=== PATIENT | female | born 1965 | race Caucasian/White ===

== ENCOUNTER → 2018-05-14 08:54 | Outpatient (CLI) | payer BC, SELFPAY ==
[2018-05-14 10:29] LABS: Hematocrit 41.3 % (37-47); Mean Corp Hgb Conc 33.9 g/gl (32-36); Mean Corpuscular Hgb 31.5 pg (27.0-32.0); Mean Corpuscular Volume 92.8 fL (81-99); Mean Platelet Vol. 10.2 fl (6.2-12.0); Platelet Count 371 K/mm3 (150-450); RBC Distribution Width CV 13.9 % (11.6-14.6); RBC Distribution Width SD 45.7 fl (35.1-43.9); Red Blood Count 4.45 M/mm3 (4.2-5.4); White Blood Count 8.2 K/mm3 (4.4-11.0)
[2018-05-14 10:30] LABS: Scan Indicated on CBC? Y/N NO
[2018-05-14 10:54] LABS: Anion Gap 9 (5-15); BUN 17 mg/dL (7-18); BUN/Creat Ratio 24.4 RATIO (10-20); Chloride 105 mmol/L (98-107); EST Glomerular Filtration Rate 93 mL/min (>60); Est Glom Filt Rate - Afr Amer 112 mL/min (>60); Glucose 92 mg/dL (74-106); Magnesium 1.9 mg/dL (1.6-2.6); Potassium 3.7 mmol/L (3.5-5.1); Sodium Level 142 mmol/L (136-145); Thyroid Stim Hormone (TSH) 0.88 uIU/mL (0.358-3.74); Vitamin D,25 Hydroxy 29.5 ng/mL (29.95-100.01)
== END ==
PROVIDERS: Family Provider Family Medicine; PCP Family Medicine; Visit Provider Family Medicine
DX: F41.1 Generalized anxiety disorder (principal)
CPT/HCPCS: 36415; 80048; 82306; 83735; 84443; 85027

== ENCOUNTER 2018-07-13 10:58 | Outpatient (RCR) | payer BC, SELFPAY ==
--- NOTE | 2018-07-16 08:18 | HP.OTEVAL_ITS ---
Patient's Visit Information SONDRA LINDSAY is a 53 year old F, referred to Occupational Therapy by VANI Huffman, with a diagnosis of Primary OA L hand, basal thumb jt.. 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 Pt. reported that the arthritis started up in October of 2016 and she recieved the cortisone shot, which was effective at the time and about 2 months ago pt. reported that the arthritis pain started coming back. - Pain L thumb 7 Pain Intensity Range: 0, 1, 2, 3, 4, 5, 6, 7 - ROM MP: 0/70 IP: 0/65 ROM Comments: slightly painful to move thumb during ROM measurements, pt. demo ability to oppose each digit and move thumb down the entire digit. 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 by completing strengthening exercises and stretches in order to complete BADL?s and IADL's. Patient will improve lateral and tripod grasps by 5 lbs. by completing strengthening and stretching exercises in order to complete BADL?s and IADL?s. Goal:: Patient will increase ROM in MP joint of L thumb by 10 degrees by completing strengthening and stretching exercises in order to complete BADL?s and IADL?s. Goal:: Patient will have decreased swelling and report overall decrease in pain of <4 in order to complete BADL?s and IADL?s. Goal:: Patient will demo understanding of joint protection and ECM recommendations for increase I with BADL?s and IADL?s. Goal:: patient will report wearing the CMC splint during functional tasks for i ncreased I with BADL's and IADL's. - Rehabilitation General Assessment: Patient presents today with OA of the L hand, specifically in the CMC area. Pt. presents with decreased strength, ROM, increased pain and decreased ability to complete BADL's and IADL's. Patient recently had a cortisone shot, which will likely help to reduce pain in hand. Patient would be nefit from OT services prn to further educate pt. on joint protection and ECM. Today, OT fabricated a CMC brace for pt. and educated pt. on joint protection and ECM. Rehabilitation Potential: Good - Anticipated Interventions Anticipated Interventions: A/AAROM/PROM, Strengthening, Triggerpoint Release, Modalities, Joint Protection/Energy Conservation, Ergonomic Education, ADL Training, Home Program - Visit Plan Frequency: prn Duration: prn TEXT: Thank you for the opportunity to evaluate your patient. For Medicare and Medicare HMO plans, please review the plan of care and approve it. It will need to be FAXED BACK to us at [phone] for Medicare purposes. Please let me know if there are questions or concerns regarding this plan of care. Physician Signature: Date:
--- NOTE | 2018-12-17 14:40 | HP.OTDCSUM ---
HP - OT D/C Summary It has been my pleasure to treat SONDRA LINDSAY under orders from VANI Huffman, for the diagnosis of Primary OA L hand, basal thumb jt. for a total of 1 visit(s). Please see the following information for a summary of their discharge status. 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 by completing strengthening exercises and stretches in order to complete BADL?s and IADL's. Patient will improve lateral and tripod grasps by 5 lbs. by completing strengthening and stretching exercises in order to complete BADL?s and IADL?s. Goal:: Patient will increase ROM in MP joint of L thumb by 10 degrees by completing strengthening and stretching exercises in order to complete BADL?s and IADL?s. Goal:: Patient will have decreased swelling and report overall decrease in pain of <4 in order to complete BADL?s and IADL?s. Goal:: Patient will demo understanding of joint protection and ECM recommendations for increase I with BADL?s and IADL?s. Goal:: patient will report wearing the CMC splint during functional tasks for increased I with BADL's and IADL's. - D/C Information If there are questions or concerns regarding this patient's occupational therapy, please fell free to call me at [phone]. Thank you for the referral of this patient. Sincerely, Duyen Kline, OTR/L, CHT
--- NOTE | 2018-12-17 14:42 | HP.OT.NRP ---
HP - Discharge Summary - Patient Information SONDRA LINDSAY was seen in my office for initial evaluation on 07/13/18. The following Plan of Care was established for this patient: Initial Frequency: prn Initial Duration: prn - Anticipated Interventions Anticipated Interventions: A/AAROM/PROM, Strengthening, Triggerpoint Release, Modalities, Joint Protection/Energy Conservation, Ergonomic Education, ADL Training, Home Program This patient was last seen in our office 07/13/18. Pertinent comments regarding their Occupational therapy will appear below: pt was seen for initial OT eval only. Due to time-lapse in services pt d/c at this time. At this point I will be discontinuing this patient from occupational therapy. I would be happy to see this patient again in the future if found appropriate by the physician. Thank you! Duyen Kline, OTR/L, CHT
--- NOTE | 2018-12-17 14:47 | HP.OTDCNRP_ITS ---
HP - Discharge Summary - Patient Information SONDRA LINSDAY was seen in my office for initial evaluation on 07/13/18. The following Plan of Care was established for this patient: Initial Frequency: prn Initial Duration: prn - Anticipated Interventions Anticipated Interventions: A/AAROM/PROM, Strengthening, Triggerpoint Release, Modalities, Joint Protection/Energy Conservation, Ergonomic Education, ADL Training, Home Program This patient was last seen in our office 07/13/18. Pertinent comments regarding their Occupational therapy will appear below: pt was seen for initial OT eval only. Due to time-lapse in services pt d/c at this time. At this point I will be discontinuing this patient from occupational therapy. I would be happy to see this patient again in the future if found appropriate by the physician. Thank you! Duyen Kline, OTR/L, CHT
--- NOTE | 2018-12-17 14:47 | HP.OTDCSUM_ITS ---
HP - OT D/C Summary It has been my pleasure to treat SONDRA LINDSAY under orders from VANI Huffman, for the diagnosis of Primary OA L hand, basal thumb jt. for a total of 1 visit(s). Please see the following information for a summary of their discharge status. 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 by completing strengthening exercises and stretches in order to complete BADL?s and IADL's. Patient will improve lateral and tripod grasps by 5 lbs. by completing str engthening and stretching exercises in order to complete BADL?s and IADL?s. Goal:: Patient will increase ROM in MP joint of L thumb by 10 degrees by completing strengthening and stretching exercises in order to complete BADL?s and IADL?s. Goal:: Patient will have decreased swelling and report overall decrease in pain of <4 in order to complete BADL?s and IADL?s. Goal:: Patient will demo understanding of joint protection and ECM recommendations for increase I with BADL?s and IADL?s. Goal:: patient will report wearing the CMC splint during functional tasks for increased I with BADL's and IADL's. - D/C Information If there are questions or concerns regarding this patient's occupational therapy, please fell free to call me at [phone]. Thank you for the referral of this patient. Sincerely, Duyen Kline, OTR/L, CHT
== END 2018-07-13 19:00 | disposition home or self-care (01) ==
LOC: OT 10:58
PROVIDERS: Family Provider Family Medicine; PCP Family Medicine; Referring Provider Physician Assistant Surgical; Visit Provider Physician Assistant Surgical
DX: M19.042 Primary osteoarthritis, left hand (principal)
CPT/HCPCS: 97166

== ENCOUNTER → 2018-08-22 14:12 | Outpatient (CLI) | payer BC, SELFPAY ==
[2018-08-25 19:49] LABS: HPV Reflexed? NOT INDICATED
== END ==
PROVIDERS: Visit Provider Obstetrics & Gynecology
DX: Z12.4 Encounter for screening for malignant neoplasm of cervix (principal)
CPT/HCPCS: 88175; G0145

== ENCOUNTER → 2019-04-10 16:36 | Outpatient (CLI) | payer BC, SELFPAY ==
[2019-04-10 17:39] LABS: Erythrocyte Sedimentation Rate 13 mm/hr (0-30)
[2019-04-10 17:43] LABS: Absolute Lymphocyte Count 3.22 X10^3/uL (0.83-4.51); Basophil# 0.04 X10^3/uL; Basophil% 0.5 % (0-1); Eosinophil# 0.34 X10^3/uL; Eosinophils% 4.1 % (0-5); Hematocrit 41.7 % (37-47); Hemoglobin 13.6 g/dL (12.0-15.0); Lymphocyte # 3.22 X10^3/ul (4.0); Lymphocyte % 38.9 % (19-41); Mean Corp Hgb Conc 32.6 g/dL (32-36); Mean Corpuscular Hgb 30.4 pg (27.0-32.0); Mean Corpuscular Volume 93.1 fL (81-99); Mean Platelet Vol. 9.9 fl (6.2-12.0); Monocyte# 0.65 X10^3/uL; Monocyte% 7.9 % (0-10); NRBC Flagged by Analyzer 0 % (0-5); Neutrophil % 48.4 % (47-70); Platelet Count 346 K/mm3 (150-450); RBC Distribution Width CV 13.5 % (11.6-14.6); RBC Distribution Width SD 46.3 fl (35.1-43.9); Red Blood Count 4.48 M/mm3 (4.2-5.4); White Blood Count 8.3 K/mm3 (4.4-11.0)
[2019-04-10 17:51] LABS: ALB/GLOB Ratio 0.9 RATIO (0.9-2.4); AST(SGOT) 17 U/L (15-37); Alanine Aminotransfer ALT/SGPT 21 U/L (13-56); Albumin, Serum 3.7 g/dL (3.2-5.0); Alkaline Phosphatase 97 U/L (45-117); Anion Gap 5 (5-15); BUN 12 mg/dL (7-18); BUN/Creat Ratio 17.3 RATIO (10-20); Calcium,Total 8.9 mg/dL (8.5-10.1); Chloride 107 mmol/L (98-107); Creatinine, Serum 0.69 mg/dL (0.55-1.02); EST Glomerular Filtration Rate 93 mL/min (>60); Est Glom Filt Rate - Afr Amer 112 mL/min (>60); Ferritin 50 ng/mL (8-252); Free T3 2.9 pg/mL (2.18-3.98); Glucose 94 mg/dL (74-106); Iron 45 ug/dL (50-170); Potassium 4.1 mmol/L (3.5-5.1); Protein, Total 7.7 g/dL (6.4-8.2); Sodium Level 139 mmol/L (136-145); T4 Free Direct 0.81 ng/dL (0.76-1.46); Thyroid Stim Hormone (TSH) 0.93 uIU/mL (0.358-3.74)
[2019-04-10 18:10] LABS: Vitamin B12 1969 pg/mL (211-911)
== END ==
PROVIDERS: Family Provider Family Medicine; PCP Family Medicine; Referring Provider Family Medicine; Visit Provider Family Medicine
DX: R53.83 Other fatigue (principal)
CPT/HCPCS: 36415; 80053; 82306; 82533; 82607; 82728; 83540; 84439; 84443; 84481; 85025; 85652

== ENCOUNTER → 2019-06-27 15:45 | Outpatient (CLI) | payer BC, SELFPAY ==
--- NOTE | 2019-06-27 15:57 | BD_ITS ---
STUDY: DUAL ENERGY X-RAY ABSORPTIOMETRY / DXA REASON FOR EXAM: Female, 54 years old. Early menopause. Loss of height. TECHNIQUE: Bone Mineral Density (BMD) measurements of lumbar spine and bilateral hips were obtained. COMPARISON: None. FINDINGS: Lumbar Spine (L1-L4): g/cm2 (1.020) / T-score (-1.3) / Z-score (-0.4) Findings are suggestive of with a low fracture risk. Left Femur Total: g/cm2 (0.766) / T-score (-1.9) / Z-score (-1.2) Left Femoral Neck: g/cm2 (0.828) / T-score (-1.5) / Z-score (-0.4) Right Femur Total: g/cm2 (0.768) / T-score (-1.9) / Z-score (-1.2) Right Femoral Neck: g/cm2 (0.770) / T-score (-1.9) / Z-score (-0.9) BD/Dexa Bone Density Study IMPRESSION: The patient is considered osteopenic as outlined below according to World [place] Organization (WHO) criteria with a moderate fracture risk. Reference Information: The T-score is the number of standard deviations above or below the standard which is normal for young adults at their peak bone mineral density. The World Health Organization (WHO) interprets the T-scores as follows: Above -1 Normal bone density Between -1 and -2.5 Osteopenia Equal to / or below -2.5 Osteoporosis As a practical clinical guideline, osteopenia may be graded as follows: Mild -1 through -1.5 Moderate -1.6 through -2.0 Severe -2.1 through -2.4 The Z-score is the number of standard deviations above or below age-matched controls. A Z-score of less than -1.5 would be considered abnormal. References: 1. NIH Osteoporosis and Related Bone Diseases http://www.osteo.org 2. International Society for Clinical Densitometry http://www.iscd.org 3. National Osteoporosis Foundation http://www.nof.org Electronically Signed: Cornelio Jean, at 13:31 EST , Service support ,
--- NOTE | 2019-06-27 16:08 | BI_ITS ---
MAMMOGRAPHY - BILATERAL SCREENING REASON FOR EXAM: Female, 54 years old. Routine annual screening examination. PERTINENT HISTORY: Grandmother with breast cancer. Remote right excisional breast biopsy. TECHNIQUE: Digital bilateral breast jina (3D mammographic acquisition) in the CC and MLO projections. 2-D mediolateral oblique (MLO) and craniocaudad (CC) views of both breasts were obtained. CAD: Full Field Digital Mammography with Computer Added Detection was performed. COMPARISON: Comparison is made with prior study dated August 10, 2017 and August 13, 2015. FINDINGS: Breast Composition: The breasts are extremely dense, which lowers the sensitivity of mammography. There are no dominant masses or suspicious calcifications. No other significant abnormalities are identified. There has been no significant change since the prior study. BI/SCREEN MAMM (CAD) W/JINA BILAT IMPRESSION: Stable bilateral screening mammogram. Yearly follow-up mammogram recommended. (A) ASSESSMENT CATEGORY: BIRADS Category 1: Negative. A letter regarding these results will be sent to the patient by the facility within 30 days. Approximately 10% of breast cancers are not detected by mammography. A normal mammogram should not delay biopsy of a clinically suspicious abnormality. [id number] Electronically Signed: Cornelio Jean, at 8:54 EST , Service support ,
== END ==
PROVIDERS: Family Provider Family Medicine; PCP Family Medicine; Referring Provider Family Medicine; Visit Provider Family Medicine
DX: Z12.31 Encounter for screening mammogram for malignant neoplasm of breast (principal); Z80.3 Family history of malignant neoplasm of breast
CPT/HCPCS: 77063; 77067; 77080

== ENCOUNTER → 2020-05-08 14:41 | Outpatient (CLI) | payer BC, SELFPAY ==
[2020-05-08 18:14] LABS: Hematocrit 40.1 % (37-47); Hemoglobin 13.4 g/dL (12.0-15.0); Mean Corp Hgb Conc 33.4 g/dL (32-36); Mean Corpuscular Hgb 30.8 pg (27.0-32.0); Mean Corpuscular Volume 92.2 fL (81-99); Mean Platelet Vol. 10.3 fl (6.2-12.0); Platelet Count 389 K/mm3 (150-450); RBC Distribution Width CV 13.1 % (11.6-14.6); RBC Distribution Width SD 44.7 fl (35.1-43.9); Red Blood Count 4.35 M/mm3 (4.2-5.4); White Blood Count 9.8 K/mm3 (4.4-11.0)
[2020-05-08 18:30] LABS: Vitamin B12 443 pg/mL (211-911); Vitamin D,25 Hydroxy 55.8 ng/mL
[2020-05-08 18:36] LABS: ALB/GLOB Ratio 1.1 RATIO (0.9-2.4); AST(SGOT) 18 U/L (15-37); Alanine Aminotransfer ALT/SGPT 21 U/L (13-56); Alkaline Phosphatase 87 U/L (45-117); Anion Gap 6 (5-15); BUN 13 mg/dL (7-18); BUN/Creat Ratio 18.7 RATIO (10-20); Calcium,Total 8.9 mg/dL (8.5-10.1); Chloride 109 mmol/L (98-107); Creatinine, Serum 0.69 mg/dL (0.55-1.02); EST Glomerular Filtration Rate 93 mL/min (>60); Est Glom Filt Rate - Afr Amer 112 mL/min (>60); Globulin 3.6 g/dL (2.2-4.2); Glucose 92 mg/dL (74-106); Iron 57 ug/dL (50-170); Potassium 3.5 mmol/L (3.5-5.1); Protein, Total 7.6 g/dL (6.4-8.2); Sodium Level 140 mmol/L (136-145); Thyroid Stim Hormone (TSH) 0.41 uIU/mL (0.358-3.74)
== END ==
PROVIDERS: PCP Family Medicine; Referring Provider Family Medicine; Visit Provider Family Medicine
DX: R53.83 Other fatigue (principal)
CPT/HCPCS: 36415; 80053; 82306; 82607; 83540; 84443; 85027

== ENCOUNTER → 2020-05-18 18:07 | Outpatient (CLI) | payer BC, SELFPAY | PROVIDERS: PCP Family Medicine; Referring Provider Family Medicine; Visit Provider Family Medicine | DX: R30.0 Dysuria (principal) | CPT/HCPCS: 87086; 87088 ==

== ENCOUNTER → 2020-05-20 | Outpatient (CLI) | payer BC, SELFPAY | END | disposition home or self-care (01) | LOC: LABSPEC 16:28 | PROVIDERS: PCP Family Medicine; Referring Provider Family Medicine; Visit Provider Family Medicine | DX: R30.0 Dysuria (principal) | CPT/HCPCS: 87086; 87088 ==

== ENCOUNTER → 2020-08-12 09:58 | Outpatient (CLI) | payer BC, SELFPAY ==
--- NOTE | 2020-08-12 10:01 | BI_ITS ---
MAMMOGRAPHY - BILATERAL SCREENING REASON FOR EXAM: Female, 55 years old. Routine annual screening examination. PERTINENT HISTORY: Grandmother with breast cancer. Right excisional breast biopsy. TECHNIQUE: Digital bilateral breast jina (3D mammographic acquisition) in the CC and MLO projections. 2-D mediolateral oblique (MLO) and craniocaudad (CC) views of both breasts were obtained. CAD: Full Field Digital Mammography with Computer Added Detection was performed. COMPARISON: Comparison is made with prior study dated 06/27/2019 and 08/10/2017. FINDINGS: Breast Composition: The breasts are extremely dense, which lowers the sensitivity of mammography. There are no dominant masses or suspicious calcifications. No other significant abnormalities are identified. There has been no significant change since the prior study. BI/SCREEN MAMM (CAD) W/JINA BILAT IMPRESSION: Stable bilateral screening mammogram. Yearly follow-up mammogram recommended. (A) ASSESSMENT CATEGORY: BIRADS Category 1: Negative. A letter regarding these results will be sent to the patient by the facility within 30 days. Approximately 10% of breast cancers are not detected by mammography. A normal mammogram should not delay biopsy of a clinically suspicious abnormality. [id number] Electronically Signed: Cornelio Jean, at 9:55 EST , Service support ,
== END ==
PROVIDERS: PCP Family Medicine; Referring Provider Family Medicine; Visit Provider Family Medicine
DX: Z12.31 Encounter for screening mammogram for malignant neoplasm of breast (principal)
CPT/HCPCS: 77063; 77067

== ENCOUNTER → 2020-11-16 | Outpatient (CLI) | payer OTHER, SELFPAY | END | disposition home or self-care (01) | PROVIDERS: PCP Family Medicine; Visit Provider Family Medicine | DX: R30.0 Dysuria (principal) | CPT/HCPCS: 87086 ==

== ENCOUNTER → 2021-06-08 | Outpatient (CLI) | payer OTHER, SELFPAY ==
[2021-06-08 15:37] LABS: Mucous, Urine 0 SEEN /hpf (<or=2+); Red Blood Cells-Urine 0 SEEN /hpf (0-5)
[2021-06-08 16:01] LABS: Color, Urine Amber (Yellow); Glucose, Dipstick Normal (Normal); Ketone-Dipstick Negative (Negative); Leukocyte Esterase-Dipstick 500 /ul (Negative); Nitrite-Dipstick Positive (Negative); Occult Blood-Urine 150 /ul (Negative); Protein-Dipstick 15 mg/dl (Negative); Urine Clarity Sl. Cloudy (Clear); Urine Urobilinogen 8 mg/dl (Normal)
[2021-06-08 16:08] LABS: Urine Bilirubin Dipstick 3 mg/dL (Negative)
[2021-06-08 16:19] LABS: Bacteria RARE /hpf (None Seen); Squamous Epithelial Cells - UA 0-5 SEEN /hpf (5-10); White Blood Cells >100 SEEN /hpf (0-5)
== END | disposition home or self-care (01) ==
LOC: LABSPEC 15:18
PROVIDERS: PCP Family Medicine; Referring Provider Physician Assistant Surgical; Visit Provider Physician Assistant Surgical
DX: N39.0 Urinary tract infection, site not specified (principal)
CPT/HCPCS: 81001; 87077; 87086; 87088; 87186

== ENCOUNTER → 2021-08-12 08:26 | Outpatient (CLI) | payer OTHER, SELFPAY ==
[2021-08-12 10:45] LABS: Vitamin D,25 Hydroxy 50.3 ng/mL
[2021-08-12 11:07] LABS: Anion Gap 6 (5-15); BUN 17 mg/dL (7-18); BUN/Creat Ratio 24.4 RATIO (10-20); Calcium,Total 9.5 mg/dL (8.5-10.1); Chloride 108 mmol/L (98-107); Cholesterol 203 mg/dL (200); EST Glomerular Filtration Rate 92 mL/min (>60); Est Glom Filt Rate - Afr Amer 111 mL/min (>60); Glucose 92 mg/dL (74-106); High Density Lipoprotein 50 mg/dL; Sodium Level 139 mmol/L (136-145); Thyroid Stim Hormone (TSH) 0.71 uIU/mL (0.358-3.74); Triglycerides 78 mg/dL; Very Low Density Lipoprotein 16 mg/dL (5-40)
== END ==
PROVIDERS: PCP Family Medicine; Visit Provider Family Medicine
DX: R53.83 Other fatigue (principal); Z13.220 Encounter for screening for lipoid disorders; Z13.29 Encounter for screening for other suspected endocrine disorder
CPT/HCPCS: 36415; 80048; 80061; 82306; 84443

== ENCOUNTER 2021-09-03 16:07 | Outpatient (CLI) | payer BC, SELFPAY ==
[2021-09-03 17:27] LABS: Absolute Lymphocyte Count 3.52 X10^3/uL (0.83-4.51); Absolute Neutrophil Count 10.2 X10^3/uL (2.0-7.7); Basophil# 0.06 X10^3/uL; Basophil% 0.4 % (0-1); Eosinophil# 0.18 X10^3/uL; Eosinophils% 1.2 % (0-5); Hematocrit 38.2 % (37-47); Hemoglobin 12.9 g/dL (12.0-15.0); Lymphocyte # 3.52 X10^3/ul (0.83-4.51); Lymphocyte % 23.2 % (19-41); Mean Corp Hgb Conc 33.8 g/dL (32-36); Mean Corpuscular Hgb 30.5 pg (27.0-32.0); Mean Corpuscular Volume 90.3 fL (81-99); Monocyte% 7.3 % (0-10); NRBC Flagged by Analyzer 0 % (0-5); Neutrophil # 10.23 X10^3/uL (2.7-7.7); Neutrophil % 67.5 % (47-70); Platelet Count 371 K/mm3 (150-450); RBC Distribution Width CV 13.2 % (11.6-14.6); RBC Distribution Width SD 43.6 fl (35.1-43.9); Red Blood Count 4.23 M/mm3 (4.2-5.4); White Blood Count 15.2 K/mm3 (4.4-11.0)
[2021-09-03 17:48] LABS: ALB/GLOB Ratio 1.2 RATIO (0.9-2.4); AST(SGOT) 16 U/L (15-37); Alanine Aminotransfer ALT/SGPT 22 U/L (13-56); Albumin, Serum 3.8 g/dL (3.2-5.0); Alkaline Phosphatase 96 U/L (45-117); Anion Gap 7 (5-15); BUN 15 mg/dL (7-18); BUN/Creat Ratio 24.8 RATIO (10-20); Calcium,Total 9.2 mg/dL (8.5-10.1); Chloride 107 mmol/L (98-107); EST Glomerular Filtration Rate 108 mL/min (>60); Est Glom Filt Rate - Afr Amer 131 mL/min (>60); Globulin 3.2 g/dL (2.2-4.2); Glucose 93 mg/dL (74-106); Sodium Level 138 mmol/L (136-145)
== END 2021-09-03 23:59 | disposition short-term general hospital (02) ==
LOC: MFPLAB 16:15
PROVIDERS: PCP Family Medicine; Referring Provider Family Medicine; Visit Provider Family Medicine
DX: K57.92 Diverticulitis of intestine, part unspecified, without perforation or abscess without bleeding (principal)
CPT/HCPCS: 36415; 80053; 85025

== ENCOUNTER 2021-09-03 16:42 | Outpatient (CLI) | payer BC, SELFPAY ==
--- NOTE | 2021-09-03 16:46 | CT_ITS ---
STUDY: CT Abdomen And Pelvis W/ Contrast Injection 09/03/2021 7:00 PM REASON FOR EXAM: Female, 56 years old. Technologist Notes Other, LLQ PAIN X 2 DAYS, PT HAD TUBAL LIGATION PAIN DIVERTICULITIS TECHNIQUE: Transaxial images were obtained with oral contrast, and with Oral and amp; IV Gastrografin and amp; 100mL Isovue-300 intravenous contrast. Individualized dose optimization techniques were used for this CT. COMPARISON: None. FINDINGS: The visualized lung bases are unremarkable. The visualized portions of the heart are within normal limits. Scattered subcentimeter hypodensities in the liver. Normal gallbladder and extrahepatic biliary system. Normal spleen. Normal pancreas. Normal bilateral adrenal glands. 3.6 mm nonobstructive right renal stone. 2 mm nonobstructive superior left renal stone. Normal visualized stomach. Normal small intestine. There is diverticulosis, with thickening of the colon wall, and pericolonic inflammation changes consistent with acute diverticulitis. There is distal descending colon mural wall edema. There is non-visualization of the appendix. There are calcifications of the abdominal aorta. This is consistent for atherosclerotic disease. There is no abdominal aortic aneurysm. Normal inferior vena cava. Subcentimeter mesenteric lymph nodes. Normal urinary bladder. There is atrophy of the uterus. There is an umbilical hernia containing fat. There are diffuse degenerative changes of the visualized lumbar spine. IMPRESSION: (NOT LISTED IN ORDER OF SIGNIFICANCE) Acute diverticulitis of the distal descending colon. Scattered subcentimeter hypodensities in the liver. ACR White Paper guidelines (To, et al. JACR 2017; 14(11):7840-3233.) suggest the following. For patients with low risk of malignancy, no further follow-up is necessary. For patients with high risk of malignancy (known malignancy with a propensity to metastasize to the liver, cirrhosis, and/or other hepatic risk factors), recommend follow-up abdominal CT or MR in 6 months. There are bilateral renal calculi. There is no evidence for an obstruction. There is no hydronephrosis. Other findings as above. Electronically Signed: Nate Cummings MD at 19:32 EST , Service support , CT/Abdomen/Pelvis WITH Contrast
== END 2021-09-03 23:59 | disposition short-term general hospital (02) ==
LOC: CT 16:44
PROVIDERS: PCP Family Medicine; Referring Provider Family Medicine; Visit Provider Family Medicine
DX: K57.32 Diverticulitis of large intestine without perforation or abscess without bleeding (principal); N20.0 Calculus of kidney
CPT/HCPCS: 74177; Q9967

== ENCOUNTER → 2022-01-28 | Outpatient (CLI) | payer BC, SELFPAY | END | disposition home or self-care (01) | LOC: LABSPEC 15:37 | PROVIDERS: PCP Family Medicine; Referring Provider Family Medicine; Visit Provider Family Medicine | DX: N39.0 Urinary tract infection, site not specified (principal) | CPT/HCPCS: 87077; 87086; 87088; 87186 ==

== ENCOUNTER → 2022-03-16 | Outpatient (CLI) | payer BC, SELFPAY ==
[2022-03-16 18:07] LABS: Absolute Lymphocyte Count 3.65 X10^3/uL (0.83-4.51); Absolute Neutrophil Count 6.5 X10^3/uL (2.0-7.7); Basophil# 0.06 X10^3/uL; Basophil% 0.5 % (0-1); Eosinophil# 0.29 X10^3/uL; Eosinophils% 2.6 % (0-5); Hematocrit 42.6 % (37-47); Lymphocyte # 3.65 X10^3/ul (0.83-4.51); Lymphocyte % 32.1 % (19-41); Mean Corp Hgb Conc 32.9 g/dL (32-36); Mean Corpuscular Hgb 30.8 pg (27.0-32.0); Mean Corpuscular Volume 93.8 fL (81-99); Mean Platelet Vol. 9.8 fl (6.2-12.0); Monocyte# 0.84 X10^3/uL; Monocyte% 7.4 % (0-10); NRBC Flagged by Analyzer 0 % (0-5); Neutrophil # 6.49 X10^3/uL (2.7-7.7); Neutrophil % 57.1 % (47-70); Platelet Count 417 K/mm3 (150-450); RBC Distribution Width CV 13.6 % (11.6-14.6); RBC Distribution Width SD 46.9 fl (35.1-43.9); Red Blood Count 4.54 M/mm3 (4.2-5.4); White Blood Count 11.4 K/mm3 (4.4-11.0)
[2022-03-16 18:24] LABS: Erythrocyte Sedimentation Rate 18 mm/hr (0-30)
[2022-03-16 18:45] LABS: AST(SGOT) 26 U/L (15-37); Alanine Aminotransfer ALT/SGPT 31 U/L (13-56); Albumin, Serum 3.8 g/dL (3.2-5.0); Alkaline Phosphatase 102 U/L (45-117); Anion Gap 5 (5-15); BUN 13 mg/dL (7-18); BUN/Creat Ratio 17.6 RATIO (10-20); Calcium,Total 9.4 mg/dL (8.5-10.1); Chloride 108 mmol/L (98-107); Creatinine, Serum 0.74 mg/dL (0.55-1.02); EST Glomerular Filtration Rate 86 mL/min (>60); Est Glom Filt Rate - Afr Amer 104 mL/min (>60); Ferritin 61 ng/mL (8-252); Globulin 3.8 g/dL (2.2-4.2); Glucose 107 mg/dL (74-106); Iron 75 ug/dL (50-170); Potassium 3.8 mmol/L (3.5-5.1); Protein, Total 7.6 g/dL (6.4-8.2); Sodium Level 138 mmol/L (136-145); Thyroid Stim Hormone (TSH) 0.62 uIU/mL (0.358-3.74)
[2022-03-16 19:23] LABS: Vitamin B12 346 pg/mL (211-911); Vitamin D,25 Hydroxy 48.3 ng/mL
== END | disposition home or self-care (01) ==
LOC: MFPLAB 16:30
PROVIDERS: PCP Family Medicine; Referring Provider Family Medicine; Visit Provider Family Medicine
DX: R53.83 Other fatigue (principal)
CPT/HCPCS: 36415; 80053; 82306; 82533; 82607; 82728; 83540; 84443; 85025; 85652

== ENCOUNTER → 2022-05-03 | Outpatient (CLI) | payer BC, SELFPAY ==
--- NOTE | 2022-05-03 15:37 | CT_ITS ---
STUDY: CT ABDOMEN AND PELVIS WITH CONTRAST ENHANCEMENT OF 1747 HOURS ON 05/03/2022 REASON FOR EXAM: 57-year-old female with clinical diverticulitis. RADIATION DOSAGE (If Supplied By Facility): CTDIvol = ( 12.38 ) mGy, DLP = ( 593.39 ) mGycm. TECHNIQUE: Transaxial images were obtained from the dome of the diaphragm to the symphysis pubis without oral contrast. 100 mL of Isovue 370 was administered intravenously for this study.. Sagittal and coronal images were reconstructed. Individualized dose optimization techniques were used for this CT. COMPARISON: 09/03/2021, at which time the patient had an acute diverticulitis of the distal descending colon. FINDINGS: Mild pectus excavatum. The visualized lung bases are unremarkable. The visualized portions of the heart are within normal limits. Presence of a 3 mm simple cyst in the dome of the right hepatic lobe and a 2 mm simple cyst in the medial aspect of the inferior right hepatic lobe. No other hepatic abnormalities. Normal size liver.. No other hepatic Normal gallbladder and extrahepatic biliary system. No cholelithiasis or cholecystitis. Normal spleen. Normal pancreas. No pancreatitis or pancreatic mass lesions. Normal bilateral adrenal glands. Normal kidneys without obstructive uropathy or pyelonephritis. Normal visualized stomach. Normal small intestine. Mild to moderate amount of fecal material in the cecum. Very minimal sigmoid colonic diverticulitis. No other sites of diverticulitis, colitis, or intestinal obstruction. The appendix is visualized and appears normal. Normal abdominal aorta. Normal inferior vena cava. Normal retroperitoneum. No free abdominal fluid or air. No abscesses. Normal empty bladder. Normal anteverted uterus. No ovarian cystic or solid mass lesions. Normal abdominal wall. Normal osseous structures. CT/Abdomen/Pelvis WITH Contrast IMPRESSION: 1. Very minimal sigmoid colonic diverticulitis. 2. Mild to moderate amount of fecal material in the cecum. 3. No other sites of diverticulitis, colitis, appendicitis or intestinal obstruction. 4. Normal kidneys without obstructive uropathy. Pyelonephritis. 5. No cholecystitis or pancreatitis. 6. Small cysts in the right hepatic lobe. No other hepatic abnormalities. 7. No evidence of uterine or ovarian abnormalities. Electronically Signed: Irvin Guy MD at 18:24 EDT ,
[2022-05-03 17:46] LABS: Absolute Lymphocyte Count 3.19 X10^3/uL (0.83-4.51); Absolute Neutrophil Count 6.5 X10^3/uL (2.0-7.7); Basophil# 0.05 X10^3/uL; Basophil% 0.5 % (0-1); Eosinophils% 2.8 % (0-5); Hematocrit 42.7 % (37-47); Hemoglobin 14.1 g/dL (12.0-15.0); Lymphocyte # 3.19 X10^3/ul (0.83-4.51); Lymphocyte % 29.5 % (19-41); Mean Corpuscular Hgb 31.3 pg (27.0-32.0); Mean Corpuscular Volume 94.7 fL (81-99); Monocyte# 0.76 X10^3/uL; NRBC Flagged by Analyzer 0 % (0-5); Neutrophil # 6.48 X10^3/uL (2.7-7.7); Neutrophil % 59.9 % (47-70); Platelet Count 409 K/mm3 (150-450); RBC Distribution Width CV 13.2 % (11.6-14.6); RBC Distribution Width SD 46.3 fl (35.1-43.9); Red Blood Count 4.51 M/mm3 (4.2-5.4); White Blood Count 10.8 K/mm3 (4.4-11.0)
[2022-05-03 18:27] LABS: ALB/GLOB Ratio 0.9 RATIO (0.9-2.4); AST(SGOT) 24 U/L (15-37); Alanine Aminotransfer ALT/SGPT 28 U/L (13-56); Albumin, Serum 3.5 g/dL (3.2-5.0); Alkaline Phosphatase 94 U/L (45-117); Anion Gap 11 (5-15); BUN 16 mg/dL (7-18); Chloride 107 mmol/L (98-107); Creatinine, Serum 0.84 mg/dL (0.55-1.02); EST Glomerular Filtration Rate 74 mL/min (>60); Est Glom Filt Rate - Afr Amer 89 mL/min (>60); Globulin 4.1 g/dL (2.2-4.2); Glucose 119 mg/dL (74-106); Potassium 3.5 mmol/L (3.5-5.1); Protein, Total 7.6 g/dL (6.4-8.2); Sodium Level 140 mmol/L (136-145)
== END | disposition home or self-care (01) ==
PROVIDERS: PCP Family Medicine; Referring Provider Family Medicine; Visit Provider Family Medicine
DX: K57.92 Diverticulitis of intestine, part unspecified, without perforation or abscess without bleeding (principal); K76.89 Other specified diseases of liver; N12 Tubulo-interstitial nephritis, not specified as acute or chronic
CPT/HCPCS: 36415; 74177; 80053; 85025; Q9967

== ENCOUNTER 2022-07-12 09:07 | Day surgery (SDC) | payer BC, SELFPAY ==
[2022-07-12] VITALS (8 sets, daily range): BP systolic 82–125; BP diastolic 43–72; PULSE 73–78; RESP 16–18; TEMP 36.2–37.2; O2SAT 93–98; BMI 22.1
[2022-07-12] MEDS: Lactated Ringers 1,000 ML 15 ML IV (09:15)
--- NOTE | 2022-07-12 09:47 | HP.PCM_ITS ---
History and Physical Date of Admission: 07/12/[address] Rafael Rogers MD on 07/01/22 at 1243 Intake Chief Complaint: f/u diverticulitis Allergies No Known Allergies Allergy (Verified 06/08/21 11:56) Medications cholecalciferol (vitamin D3) 25 mcg (1,000 unit) capsule 25 mcg PO DAILY 03/13/21 [History Confirmed 06/21/22] escitalopram oxalate 5 mg tablet 5 mg PO DAILY 03/13/21 [History Confirmed 06/21/22] calcium carbonate 600 mg calcium (1,500 mg) tablet 600 mg PO DAILY 06/21/22 [History Confirmed 06/21/22] multivitamin 1 tab PO DAILY 06/21/22 [History Confirmed 06/21/22] Assessment and Plan Assessment and Plan (1) Diverticulitis: ?Status:?Acute ?Plan: July 01, 2022 I have been alerted the patient is desiring to proceed on with colonoscopy.? There is additional comment that she had a previous hemorrhoidectomy per Dr. Florencio Gomez.? She states that she is having recurrent problems would like to have this area inspected as well. Rafael Rogers M.D., F.A.C.S. 07/01/22 1243 <Electronically signed by Rafael Rogers MD> Date Rafael Rogers MD cc:? Dr. Iker Arroyo MD ~* Signed ADDENDUM by Dr. Rafael Rogers MD on 06/30/22 at 1011 Intake Chief Complaint: f/u diverticulitis Allergies No Known Allergies Allergy (Verified 06/08/21 11:56) Medications cholecalciferol (vitamin D3) 25 mcg (1,000 unit) capsule 25 mcg PO DAILY 03/13/21 [History Confirmed 06/21/22] escitalopram oxalate 5 mg tablet 5 mg PO DAILY 03/13/21 [History Confirmed 06/21/22] calcium carbonate 600 mg calcium (1,500 mg) tablet 600 mg PO DAILY 06/21/22 [History Confirmed 06/21/22] multivitamin 1 tab PO DAILY 06/21/22 [History Confirmed 06/21/22] Assessment and Plan Assessment and Plan (1) Diverticulitis: ?Status:?Acute ?Plan: June 30, 2022 I now have information from Sisi Wilson of [employer] information management.? It appears that Dr. Florencio Gomez on March 14, 2019 performed a colonoscopy.? Findings included hemorrhoids.? Multiple small and large diverticula of the sigmoid colon.? Diminutive polyp of the rectosigmoid.? A single medium size angio ectasia without bleeding was found at the hepatic flexure.? The polyp was removed and is only hyperplastic.? Repeat colonoscopy in 5 years based upon pathology.? Resume anticoagulant at previous dose. With this as information this will be outdated information.? I will propose for the patient that we proceed with an updated colonoscopy.? Very careful inspection for any potential focus of diverticular inflammation as well as location of this process will be pursued.? We will proceed at her discretion.? I anticipate monitored anesthesia care. Rafael Rogers M.D., F.A.C.S. 06/30/22 1011 <Electronically signed by Rafael Rogers MD> Date Rafael Rogers MD cc:? Dr. Iker Arroyo MD ~* Signed Intake Vital Signs ? 03/13/2109:47 Height 5 ft 6.5 in Intake Visit Reasons:?DIVERTICULITIS Chief Complaint: f/u diverticulitis Mechanical Service Representative Required: No Is patient in pain?: No Allergies No Known Allergies Allergy (Verified 06/08/21 11:56) Medications cholecalciferol (vitamin D3) 25 mcg (1,000 unit) capsule 25 mcg PO DAILY 03/13/21 [History Confirmed 06/21/22] escitalopram oxalate 5 mg tablet 5 mg PO DAILY 03/13/21 [History Confirmed 06/21/22] calcium carbonate 600 mg calcium (1,500 mg) tablet 600 mg PO DAILY 06/21/22 [History Confirmed 06/21/22] multivitamin 1 tab PO DAILY 06/21/22 [History Confirmed 06/21/22] Is last menstrual period known: No Post menopausal: Yes Patient : No PFSH Medical History?(Updated 06/21/22 @ 15:10 by Betty Degroot) Anxiety and depression Hemorrhoid Surgical History?(Updated 06/21/22 @ 15:10 by Betty Degroot) History of colonoscopy History of hemorrhoidectomy Family History?(Updated 06/21/22 @ 15:11 by Betty Degroot) Father Heart disease Myocardial infarctionMother Diabetes Heart diseaseBrother Heart disease Myocardial infarction Diabetes Social History? Smoking Status:? Current every day smoker tobacco type: cigarettes HPI HPI HPI: 57-year-old female who is referred by Dr. Karl Arroyo for surgical consultation regarding sigmoid diverticulitis.? Written copy my surgical consult recommendations will return to him.? By report the patient has had 2 episodes this year.? September 03, 2021 she had an elevated white blood cell count at 15.2 while March 16, 2022 her white blood cell count at that time was 11.[address] scan at the [facility] September 03, 2021 scattered subcentimeter hypodensities of the liver.? Bilateral renal calculi.? No other acute findings.She then had an additional CT scan of the abdomen pelvis on May 03, 2022.? At that time she had the liver densities.? She was felt to have very minimal sigmoid colonic diverticulitis.? Mild to moderate amount of fecal material within the cecum. The patient states that she currently is not having abdominal pain.? She has had problems with chronic constipation.? She states that her eating habits are regular.? She was placed temporarily on Linzess but did not like that.? She is also recently started Citrucel Gummies and takes prune juice as needed.? She states she might not have a bowel movement for a week.? She complains that recently she has had some more urgent stool but that was after this most recent bout of inflammation.? She denies bright red blood per rectum or melena.? She does walk nightly with her dog and that is approximately 2 mile walk. She states that she has had a total of 4 colonoscopies.? 2 were under the age of 50 due to hemorrhoid problems.? She states she thinks her most recent colonoscopy was done by Dr. Florencio Gomez and states that polyps were found but that she is not scheduled for her next colonoscopy for 10 years. She has had no previous abdominal operations. She does smoke a pack per day of tobacco denies much alcohol use. She states that these 2 recent bouts of diverticulitis have been her very first and that she has not had previous remote bouts.? She states that the pain that she experienced in her April 2022 bout was much more severe than her August 2021 about even though her white blood cell count in August was 14,000 and her white blood cell count in April was 11,000.? As noted above her CT scan in August did not demonstrate acute disease while her CT scan in April did suggest mild diverticulitis. ROS General General: Yes weight change and fatigue; No appetite, colon cancer, breast cancer or weakness HEENT HEENT: No difficulty swallowing, eye injury, eye surgery, swollen glands or hoarseness Endo Endocrine: No thyroid disease, diabetes mellitus, thyroid cancer, Hair loss, heat intolerance or cold intolerance Musc Musculoskeletal: No back problems, arthritis, rheumatoid arthritis, gout or joint pain Cardio Cardiovascular: No murmur, pacemaker, heart disease, atrial fibrillation, high blood pressure, heart attack, heart stent, palpitations, shortness of breat with exertion or chest pain Psych Psychiatric: Yes depression and anxiety; No hearing voices Resp Respiratory: No shortness of breath, Yes sleep apnea, No cough, No COPD, No asthma, No emphysema and No wheezing Gastro Gastrointestinal: No abdominal pain, No nausea or vomiting, Yes diarrhea, Yes constipation, No blood in stool, No acid reflux, Yes hemorrhoids, No ulcers, No gallbladder problem and No black,tarry stools Star Hematologic: No blood thinners, No blood disorders, No bleeding, No anemia and No blood clots Neuro Neurologic: No weakness Exam Const General: cooperative, comfortable and no acute distress [facility] Head: normal to inspection Eyes General: appearance normal, both eyes and all related structures Neck Neck: normal visual inspection Chest Chest palpation & inspection: normal inspection of the chest Resp Effort & Inspection: normal respiratory effort Auscultation: clear to auscultation bilaterally Cardio Rate: regular rate Rhythm: regular rhythm GI Palpation: soft and no hepatosplenomegaly Auscultation: normal bowel sounds Other: Nontender, no hepatosplenomegaly, no focal masses, no rebound or guarding Musc Cervical Spine: normal cervical lordosis Skin General: no rashes or lesions noted Neuro General: patient alert, patient awake and patient oriented x3 Cognition: normal cognition Extrem General: no calf tenderness Psych Appearance: grossly normal Assessment and Plan Assessment and Plan (1) Diverticulitis: ?Status:?Acute ?Plan: I would like to obtain records from the patient's most recent colonoscopy report.? We have requested a release of information.? The patient states that s he had polyps at that time. On my review of her most recent CT scan I impressed by the amount of fecal loading in the sigmoid colon and extensive number of diverticula with inflammation I believe likely in the mid sigmoid.? She does have additional extensive more proximal diverticula. The patient currently is asymptomatic.? She was able to be managed on both occasions as an outpatient.? I have extensively discussed with the patient and with her mother Agnieszka Campos present that we could consider a laparoscopic sigmoid colectomy with primary anastomosis.? This likely would require mobilization of her splenic flexure.? I have discussed the technique, benefit, risk, alternatives.? No guarantees of success have been offered.? We also discussed conservative measures. She already drinks significant mount of water daily.? She exercises daily with walking.? I have strongly encouraged the patient to cease her tobacco use and it offer her caution regarding increased operative risk by her continue to do so.? We discussed the potential risk of recurrent diverticulitis.? She hopefully will be more consistent with her dietary habits and I have encouraged that she take a daily fiber supplement. We will contact her once we obtain the results of her previous colonoscopy.? This will help determine whether I should recommend proceeding with an updated colonoscopy at this time.? The patient otherwise however is requesting taking a conservative approach regarding her diverticular disease to see if she can improve her general bowel regimen.? I have instructed her that should she have any recurrence of pain or suspicion of diverticular disease to contact this office. She has had an opportunity to ask and have questions answered.? I very much appreciate the kind opportunity of assisting with her surgical care Copy: Dr. Karl Rogers M.D., F.A.C.S. I have examined the patient and the H&P has been reviewed. There are no clinical changes since date of exam. Rafael Rogers M.D., F.A.C.S.
--- NOTE | 2022-07-12 11:21 | OP.COLON_ITS ---
Patient Name: Sujatha Fernandez Procedure Date: 07/12/2022 10:44 AM Date of : 1965 Age: 57 Procedure: Colonoscopy Indications: Abnormal CT of the GI tract Providers: Rafael Rogers MD Medicines: See the Anesthesia note for documentation of the administered medications Patient Profile: Last Colonoscopy: March 2019. Complications: No immediate complications. Procedure: Pre-Anesthesia Assessment: - Prior to the procedure, a History and Physical was performed, and patient medications and allergies were reviewed. The patient's tolerance of previous anesthesia was also reviewed. The risks and benefits of the procedure and the sedation options and risks were discussed with the patient. All questions were answered, and informed consent was obtained. Prior Anticoagulants: The patient has taken no previous anticoagulant or antiplatelet agents. ASA Grade Assessment: II - A patient with mild systemic disease. After reviewing the risks and benefits, the patient was deemed in satisfactory condition to undergo the procedure. After I obtained informed consent, the scope was passed under direct vision. Throughout the procedure, the patient's blood pressure, pulse, and oxygen saturations were monitored continuously. The pediatric colonoscope was introduced through the anus and advanced to the cecum, identified by appendiceal orifice and ileocecal valve. The colonoscopy was performed with moderate difficulty due to multiple diverticula in the colon. Successful completion of the procedure was aided by changing the patient to a supine position. The patient tolerated the procedure well. The quality of the bowel preparation was good. Scope In: 10:51:26 AM Scope Withdrawal Time 0 hours 6 minutes 9 seconds Scope Out: 11:13:01 AM Total Procedure Duration Time 0 hours 21 minutes 35 seconds Findings: The digital rectal exam findings include non-thrombosed external hemorrhoids, non-thrombosed internal hemorrhoids and internal hemorrhoids that prolapse with straining, but require manual replacement into the anal canal (Grade III). Multiple small-mouthed diverticula were found in the sigmoid colon. Area was tattooed at the proximal edge of the most severe component of the diverticular disease with an injection of 2 mL of Angelica ink. I injected a cc and a half more proximally in the colon where diverticula were still present but I seem to be quite free from the severity of the disease and then there was a second half cc injection more distally in the sigmoid several centimeters on distally which seem to involve the proximal edge of the very severe disease The exam was otherwise without abnormality. Impression: - Non-thrombosed external hemorrhoids, non-thrombosed internal hemorrhoids and internal hemorrhoids that prolapse with straining, but require manual replacement into the anal canal (Grade III) found on digital rectal exam. Evidence of a previous right lateral surgical hemorrhoidectomy but it appears just one stalk was removed. - Diverticulosis in the sigmoid colon. Tattooed. Proximal sigmoid colon 2 different areas 1 more proximally in an area of more normal diameter: Albeit still with diverticula and one slightly more distally in the proximal sigmoid colon that seem to theron the edge of the severe diverticular disease - The examination was otherwise normal. - No specimens collected. Recommendation: - Discharge patient to home. - Resume previous diet. - Continue present medications. - Return to my office in 1 week. Consider laparoscopic resection of the heavily diseased sigmoid colon The patient might also benefit from a future redo surgical hemorrhoidectomy - Repeat colonoscopy in 10 years for screening purposes. Procedure Code(s): --- Professional --- 92128, Colonoscopy, flexible; with directed submucosal injection(s), any substance Diagnosis Code(s): --- Professional --- K64.2, Third degree hemorrhoids K64.4, Residual hemorrhoidal skin tags K57.30, Diverticulosis of large intestine without perforation or abscess without bleeding R93.3, Abnormal findings on diagnostic imaging of other parts of digestive tract CPT copyright 2017 [employer]. All rights reserved. The codes documented in this report are preliminary and upon event technician review may be revised to meet current compliance requirements. Rafael Rogers MD 07/12/2022 11:21:11 AM This report has been signed electronically. Number of Addenda: 0 Note Initiated On: 07/12/2022 10:44 AM
--- NOTE | 2022-07-12 11:22 | OP.CCLET_ITS ---
07/12/2022 Iker Arroyo [address] [place] [address] Re : Colonoscopy procedure for Sujatha Fernandez Dear Dr. Arroyo This procedure was performed on Tuesday, July 12, 2022. My impressions and recommendations are as follows: Impressions : - Non-thrombosed external hemorrhoids, non-thrombosed internal hemorrhoids and internal hemorrhoids that prolapse with straining, but require manual replacement into the anal canal (Grade III) found on digital rectal exam. Evidence of a previous right lateral surgical hemorrhoidectomy but it appears just one stalk was removed. - Diverticulosis in the sigmoid colon. Tattooed. Proximal sigmoid colon 2 different areas 1 more proximally in an area of more normal diameter: Albeit still with diverticula and one slightly more distally in the proximal sigmoid colon that seem to theron the edge of the severe diverticular disease - The examination was otherwise normal. - No specimens collected. Recommendations : - Discharge patient to home. - Resume previous diet. - Continue present medications. - Return to my office in 1 week. Consider laparoscopic resection of the heavily diseased sigmoid colon The patient might also benefit from a future redo surgical hemorrhoidectomy - Repeat colonoscopy in 10 years for screening purposes. My findings are described in the full procedure note, which is enclosed. If I can be of further assistance, please feel free to contact me at Doctor phone number(s): Work: . Sincerely, Rafael Rogers MD 07/12/2022 11:21:11 AM This report has been signed electronically.
== END 2022-07-12 12:24 | disposition home or self-care (01) ==
LOC: EN 09:11 → AC 09:14
PROVIDERS: PCP Family Medicine; Referring Provider Family Medicine; Visit Provider Surgery
PROC: 0DJD8ZZ Inspection of Lower Intestinal Tract, Via Natural or Artificial Opening Endoscopic (ICD-10-PCS; CPT 45378; principal; 2022-07-12 10:25)
DX: K57.30 Diverticulosis of large intestine without perforation or abscess without bleeding (principal); K57.92 Diverticulitis of intestine, part unspecified, without perforation or abscess without bleeding; F17.210 Nicotine dependence, cigarettes, uncomplicated; Z79.01 Long term (current) use of anticoagulants; K64.4 Residual hemorrhoidal skin tags; K64.2 Third degree hemorrhoids; R93.3 Abnormal findings on diagnostic imaging of other parts of digestive tract
CPT/HCPCS: 45381; J7120; A4648; J2405

== ENCOUNTER → 2022-08-01 | Outpatient (CLI) | payer BC, SELFPAY ==
[2022-08-01 13:20] LABS: Absolute Lymphocyte Count 3.14 X10^3/uL (0.83-4.51); Absolute Neutrophil Count 3.9 X10^3/uL (2.0-7.7); Basophil# 0.05 X10^3/uL; Basophil% 0.6 % (0-1); Eosinophil# 0.26 X10^3/uL; Eosinophils% 3.3 % (0-5); Hematocrit 41.9 % (37-47); Hemoglobin 14.2 g/dL (12.0-15.0); Lymphocyte # 3.14 X10^3/ul (0.83-4.51); Lymphocyte % 39.4 % (19-41); Mean Corp Hgb Conc 33.9 g/dL (32-36); Mean Corpuscular Hgb 31.1 pg (27.0-32.0); Mean Corpuscular Volume 91.9 fL (81-99); Mean Platelet Vol. 9.3 fl (6.2-12.0); Monocyte# 0.62 X10^3/uL; Monocyte% 7.8 % (0-10); NRBC Flagged by Analyzer 0 % (0-5); Neutrophil # 3.88 X10^3/uL (2.7-7.7); Neutrophil % 48.8 % (47-70); Platelet Count 363 K/mm3 (150-450); RBC Distribution Width CV 13.2 % (11.6-14.6); RBC Distribution Width SD 45.3 fl (35.1-43.9); Red Blood Count 4.56 M/mm3 (4.2-5.4)
[2022-08-01 13:37] LABS: Anion Gap 4 (5-15); BUN 12 mg/dL (7-18); BUN/Creat Ratio 16.2 RATIO (10-20); Chloride 106 mmol/L (98-107); Creatinine, Serum 0.74 mg/dL (0.55-1.02); EST Glomerular Filtration Rate 85 mL/min (>60); Est Glom Filt Rate - Afr Amer 103 mL/min (>60); Glucose 101 mg/dL (74-106); Potassium 3.9 mmol/L (3.5-5.1); Sodium Level 138 mmol/L (136-145)
[2022-08-01 13:39] LABS: Erythrocyte Sedimentation Rate 18 mm/hr (0-30)
== END | disposition home or self-care (01) ==
LOC: PAVLAB 13:06
PROVIDERS: PCP Family Medicine; Referring Provider Physician Assistant; Visit Provider Physician Assistant
DX: K57.92 Diverticulitis of intestine, part unspecified, without perforation or abscess without bleeding (principal)
CPT/HCPCS: 36415; 80048; 85025; 85652

== ENCOUNTER → 2022-08-10 | Outpatient (CLI) | payer BC, SELFPAY | END | disposition home or self-care (01) | LOC: LABSPEC 13:51 | PROVIDERS: PCP Family Medicine; Referring Provider Family Medicine; Visit Provider Family Medicine | DX: N39.0 Urinary tract infection, site not specified (principal) | CPT/HCPCS: 87086; 87088 ==

== ENCOUNTER 2022-09-13 05:24 | Inpatient (IN) | payer BC, SELFPAY ==
--- NOTE | 2022-09-06 07:21 | EKG12_ITS ---
Test Reason : PRE-OP Blood Pressure : / mmHG Vent. Rate : 091 BPM Atrial Rate : 091 BPM P-R Int : 130 ms QRS Dur : 062 ms QT Int : 372 ms P-R-T Axes : 075 072 045 degrees QTc Int : 457 ms Normal sinus rhythm Normal ECG Confirmed by MALINDA WATKINS, KING ([id number]), newspaper or periodical editor ROMAINE NELSON ([id number]) on 09/07/2022 9:05:31 AM Referred By: ANGELIKA Confirmed By:KING PETTY MD
[2022-09-06 07:58] LABS: Hematocrit 41.4 % (37-47); Hemoglobin 13.7 g/dL (12.0-15.0); Mean Corp Hgb Conc 33.1 g/dL (32-36); Mean Corpuscular Hgb 30.5 pg (27.0-32.0); Mean Corpuscular Volume 92.2 fL (81-99); Mean Platelet Vol. 9.5 fl (6.2-12.0); Platelet Count 377 K/mm3 (150-450); RBC Distribution Width CV 13.5 % (11.6-14.6); RBC Distribution Width SD 46.2 fl (35.1-43.9); Red Blood Count 4.49 M/mm3 (4.2-5.4); White Blood Count 8.6 K/mm3 (4.4-11.0)
[2022-09-06 08:29] LABS: Magnesium 2.2 mg/dL (1.6-2.6)
[2022-09-06 08:42] LABS: Anion Gap 3 (5-15); BUN 10 mg/dL (7-18); BUN/Creat Ratio 14.6 RATIO (10-20); Chloride 109 mmol/L (98-107); Creatinine, Serum 0.69 mg/dL (0.55-1.02); EST Glomerular Filtration Rate 93 mL/min (>60); Est Glom Filt Rate - Afr Amer 113 mL/min (>60); Glucose 95 mg/dL (74-106); Potassium 4.3 mmol/L (3.5-5.1); Sodium Level 139 mmol/L (136-145)
[2022-09-13] VITALS (12 sets, daily range): BP systolic 89–112; BP diastolic 51–62; PULSE 76–93; RESP 15–18; TEMP 36.4–37.2; O2SAT 97–100; BMI 21.7; BMI 15.6
[2022-09-13] MEDS: Lactated Ringers 1,000 ML 40 ML IV ×3 (06:12→09:07)
[2022-09-13] MEDS: Acetaminophen 500 MG Tablet 1000 MG PO ×2 (06:14→18:06)
[2022-09-13] MEDS: Gabapentin 600 MG Tablet PO (06:16)
--- NOTE | 2022-09-13 06:25 | PCM.HP.BLA ---
History and Physical Date of Admission: 09/13/22 Chief Complaint: Update history and Physical for colectomy 09/13/22 Field Technician Required: No Is patient in pain?: No Allergies No Known Allergies Allergy (Verified 09/06/22 08:08) Medications cholecalciferol (vitamin D3) 25 mcg (1,000 unit) capsule 25 mcg PO DAILY SUPPLEMENT 03/13/21 history Confirmed 09/06/22 escitalopram oxalate 5 mg tablet 5 mg PO QHS ANXIETY 03/13/21 history Confirmed 09/06/22 calcium carbonate 600 mg calcium (1,500 mg) tablet 600 mg PO DAILY SUPPLEMENT 06/21/22 history Confirmed 09/06/22 multivitamin 1 tab PO DAILY SUPPLEMENT 06/21/22 history Confirmed 09/06/22 PFSH Medical History? Anxiety and depression Arthritis History of diverticulitis Post-menopausal Shoulder pain Smoker Wears dentures Wears partial dentures Surgical History? History of colonoscopy History of hemorrhoidectomy Family History? Father Heart disease Myocardial infarctionMother Diabetes Heart diseaseBrother Heart disease Myocardial infarction Diabetes Social History? Smoking Status:? Current every day smoker tobacco type: cigarettes HPI HPI Surgical H&P: Yes HPI: Patient is a 57 y/o F I am following for recurrent sigmoid diverticulitis. Patient presents for an update history and physical for an elective sigmoid colectomy for recurrent diverticulitis. Patient denies any left lower quadrant pain since her last office visit on 08/01/23. Patient notes occasional discomfort however this resolves within seconds. Patient notes she has been having diarrhea, which has been her normal bowel habits for months. She notes she is eating soft foods and supplementing with Ensure multiple times throughout the day. Patient denies being on any antibiotic regimen since late July. She denies any cardiac history and pulmonary history. She denies complications or side effects from anesthesia. Patient's previous history per Dr. Rogers: 57-year-old female.? She returns to follow-up on a colonoscopy that was performed for her by myself on July 12, 2022.? Multiple diverticula were seen throughout the sigmoid colon.? The very proximal edge of the most severe component was tattooed with Angelica ink and then slightly more proximally in the sigmoid colon I inked another area where the severity of the diverticula seem to be improving.? She is returning to discuss potential surgical treatment options.? My previous history as noted below.? It is of note that she is a pack per day cigarette smoker.? She is not on any anticoagulant. Patient states that the other night that she ate some pizza and that caused some abdominal discomfort.? She states that she knows that she is having ongoing problems.? 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 That does involve physical work and standing on concrete.? She is wondering how many days off of work she would require 57-year-old female who is referred by Dr. Karl Arroyo for surgical consultation regarding sigmoid diverticulitis.? Written copy my surgical consult recommendations will return to him.? By report the patient has had 2 episodes this year.? September 03, 2021 she had an elevated white blood cell count at 15.2 while March 16, 2022 her white blood cell count at that time was 11.[address] scan at the [facility] September 03, 2021 scattered subcentimeter hypodensities of the liver.? Bilateral renal calculi.? No other acute findings.She then had an additional CT scan of the abdomen pelvis on May 03, 2022.? At that time she had the liver densities.? She was felt to have very minimal sigmoid colonic diverticulitis.? Mild to moderate amount of fecal material within the cecum. The patient states that she currently is not having abdominal pain.? She has had problems with chronic constipation.? She states that her eating habits are regular.? She was placed temporarily on Linzess but did not like that.? She is also recently started Citrucel Gummies and takes prune juice as needed.? She states she might not have a bowel movement for a week.? She complains that recently she has had some more urgent stool but that was after this most recent bout of inflammation.? She denies bright red blood per rectum or melena.? She does walk nightly with her dog and that is approximately 2 mile walk. She states that she has had a total of 4 colonoscopies.? 2 were under the age of 50 due to hemorrhoid problems.? She states she thinks her most recent colonoscopy was done by Dr. Florencio Gomez and states that polyps were found but that she is not scheduled for her next colonoscopy for 10 years. She has had no previous abdominal operations. She does smoke a pack per day of tobacco denies much alcohol use. She states that these 2 recent bouts of diverticulitis have been her very first and that she has not had previous remote bouts.? She states that the pain that she experienced in her April 2022 bout was much more severe than her August 2021 about even though her white blood cell count in August was 14,000 and her white blood cell count in April was 11,000.? As noted above her CT scan in August did not demonstrate acute disease while her CT scan in April did suggest mild diverticulitis. I would like to obtain records from the patient's most recent colonoscopy report.? We have requested a release of information.? The patient states that she had polyps at that time. On my review of her most recent CT scan I impressed by the amount of fecal loading in the sigmoid colon and extensive number of diverticula with inflammation I believe likely in the mid sigmoid.? She does have additional extensive more proximal diverticula. The patient currently is asymptomatic.? She was able to be managed on both occasions as an outpatient.? I have extensively discussed with the patient and with her mother Agnieszka Campos present that we could consider a laparoscopic sigmoid colectomy with primary anastomosis.? This likely would require mobilization of her splenic flexure.? I have discussed the technique, benefit, risk, alternatives.? No guarantees of success have been offered.? We also discussed conservative measures. She already drinks significant amount of water daily.? She exercises daily with walking.? I have strongly encouraged the patient to cease her tobacco use and it offer her caution regarding increased operative risk by her continue to do so.? We discussed the potential risk of recurrent diverticulitis.? She hopefully will be more consistent with her dietary habits and I have encouraged that she take a daily fiber supplement. ROS General General: Yes weight change and fatigue; No appetite, colon cancer, breast cancer or weakness HEENT HEENT: No difficulty swallowing, eye injury, eye surgery, swollen glands or hoarseness Endo Endocrine: No thyroid disease, diabetes mellitus, thyroid cancer, Hair loss, heat intolerance or cold intolerance Musc Musculoskeletal: No back problems, arthritis, rheumatoid arthritis, gout or joint pain Cardio Cardiovascular: No murmur, pacemaker, heart disease, atrial fibrillation, high blood pressure, heart attack, heart stent, palpitations, shortness of breat with exertion or chest pain Psych Psychiatric: Yes depression and anxiety; No hearing voices Resp Respiratory: No shortness of breath, Yes sleep apnea, No cough, No COPD, No asthma, No emphysema and No wheezing Gastro Gastrointestinal: No abdominal pain, No nausea or vomiting, Yes diarrhea, Yes constipation, No blood in stool, No acid reflux, Yes hemorrhoids, No ulcers, No gallbladder problem and No black,tarry stools Star Hematologic: No blood thinners, No blood disorders, No bleeding, No anemia and No blood clots Neuro Neurologic: No weakness Exam Const General: cooperative, healthy appearing, comfortable and no acute distress [facility] Head: normal to inspection Eyes General: appearance normal, both eyes and all related structures Neck Neck: normal visual inspection Neck mass: No Chest Chest palpation & inspection: normal inspection of the chest Resp Effort & Inspection: normal respiratory effort Auscultation: clear to auscultation bilaterally Cardio Rate: regular rate Rhythm: regular rhythm GI Inspection: normal to inspection Palpation: soft and nontender Musc Cervical Spine: normal cervical lordosis Skin General: no rashes or lesions noted Neuro General: no focal motor deficits and CN's II-XI intact bilaterally Extrem General: normal to inspection Psych Appearance: grossly normal Affect: normal affect Assessment and Plan Assessment and Plan (1) Diverticulitis: ?Status:?Acute ?Plan: Dr. Rogers will plan to perform a laparoscopic sigmoid colectomy with possible conversion to hand-assisted or open approach. Procedure details, risks and benefits have been explained and reviewed. Patient is aware that if the colon is inflamed in the sigmoid region that she may have an ileostomy created. Patient is also aware she will be staying in the hospital for several days following the procedure. Patient has had the opportunity to ask and have questions answered. Patient verbally understands and agrees with the plan. Bowel prep and antibiotic prep has been explained to her. Patient has received the ERAS pre-surgical drinks and diet instructions post-operatively. I have examined the patient and the H&P has been reviewed. There are no clinical changes since date of exam. Rafael Rogers M.D., F.A.C.S.
--- NOTE | 2022-09-13 06:27 | DCINST_ITS ---
Discharge Instructions Procedure General Surgery Diet Discharge Diet: Light diet - advance as tolerated (if you have questions about your diet instructions, please talk to you doctor.) Activity Discharge Activity: May Not Drive (for 3-5 days or while taking narcotic pain medicine.) May shower in (days): 1 Lifting Restrictions: 10 pounds Dressing / Incision Call your doctor if your incision/area has: Continuous Slow Oozing, Sudden Increased Bleeding, Increased Pain/ Swelling, Increased Redness and Foul Smelling Discharge Call your doctor if you observe: Fever of 101 or Higher Suture Line Care: Avoid Pulling/Pushing and Avoid Pinching/Bending Additional Dressing/Incision Instructions:: Change or remove dressing in 4 days. Leave steri-strips in place for 1 week. Follow Up Care Please Follow Up With: Rafael Rogers MD When: Call [phone] to make an appointment to be seen in about 10 days. Test Results: Test results from this visit will be discussed in further detail at your follow- up appointment, if applicable. Discharge Plan Admission Admit Date/Time: 09/13/22 05:24 Attending Provider: Rafael Rogers Primary Care Provider: Iker Arroyo Discharge Orders/Prescriptions Prescriptions: No Action cholecalciferol (vitamin D3) 25 mcg (1,000 unit) capsule 25 mcg PO DAILY escitalopram oxalate 5 mg tablet 5 mg PO QHS calcium carbonate 600 mg calcium (1,500 mg) tablet 600 mg PO DAILY multivitamin Tablet 1 tab PO DAILY Referrals / Follow Up: Iker Arroyo MD [Primary Care Provider] -
[2022-09-13 06:51] LABS: Bedside Glucose 86 mg/dL (74-106)
--- NOTE | 2022-09-13 07:12 | PCM.PN.SRG ---
Objective Data Objective Data Vital Signs: Vital Signs Temp Pulse Resp BP Pulse Ox O2 Del Method 97.6 F L 86 16 109/62 97 Room Air 09/13/22 06:09 09/13/22 06:09 09/13/22 06:09 09/13/22 06:09 09/13/22 06:09 09/13/22 06:09 Oxygen Delivery Method Room Air Weight: 139 lb 1.787 oz Body Mass Index (BMI) 21.7 Lab / Micro Data Result Diagrams: 09/06/22 07:43 09/06/22 07:43 Labs: Laboratory Results - last 24 hr 09/13/22 05:56: POC Glucose 86
[2022-09-13] MEDS: Cefotetan 2 GM in 0.9% NS 100 ML IV (07:30)
--- NOTE | 2022-09-13 07:30 | COL_PTH ---
PATIENT: SONDRA LINDSAY LOC: MS3 U#:[id number] AGE/SX: 57/F ROOM: NE310 RE09/13/[address]: Dr. Rafael Rogers MD : 1965 BED: 1 DIS: 09/14/2022 SPEC #: [id number] RECD: 09/13/22 12:13 STATUS: JIMMY RODRIGUEZ #: [id number] SOREN: 09/13/22 07:[address]: Rafael Rogers DEPT: SURGICAL PATHOLOGY RECD BY: ySdni Santizo ENTERED: 09/13/22 12:46 SP TYPE: COLON OTHR DR: Dr. Karl Arroyo MD Tissues: Colon, NOS Procedures: Surgery Specimen Level V HEADER OPERATION: ERAS, laparoscopic sigmoid colectomy PRE-OP DIAGNOSIS: Diverticulitis TISSUE SUBMITTED: A ? Sigmoid colon ? stapled end is distal, B ? Proximal sigmoid donut, C ? Distal sigmoid donut MICROSCOPIC DIAGNOSIS A. Sigmoid colon, colectomy: Diverticulosis. One benign pericolonic lymph node. B. Proximal sigmoid donut: Colonic donut, no pathologic diagnosis. C. Distal sigmoid donut: Colonic donut, no pathologic diagnosis. SHANTEL:victoriano 09/15/2022 MICROSCOPIC DESCRIPTION Slides are reviewed. GROSS DESCRIPTION A - Received in fixative is one container labeled with the patient's name and designated sigmoid colon, stapled end is distal. The specimen consists of a segment of colon with attached pericolonic adipose tissue measuring 15 cm in length. One end is stapled identified as distal. The lumen contains a small amount of fecal material. No mucosal lesion is identified. Blue dye discoloration is noted at both mucosal and serosal surface. Sections reveal multiple diverticula. No obviously ruptured diverticula are noted. A few of the diverticula appear to be filled with fecal material. More dictation will follow after fixation. / SHANTEL:victoriano 09/13/2022 Sections of the pericolonic adipose tissue do not reveal any obviously lymph node. Granular Operator sections are submitted in five cassettes as follows: 1 ? resection margin, distal resection margin inked black, 2-4 diverticula, 5 ? pericolonic adipose tissue. / SHANTLE:victoriano 09/14/2022 B - Received in fixative is one container labeled with the patient's name and designated proximal sigmoid donut. The specimen consists of a colonic donut measuring 2.2 x 2.2 x 1.5 cm. Multiple sutures are noted. Granular Operator sections are submitted in one cassette. / SHATNEL:victoriano 09/13/2022 C - Received in fixative is one container labeled with the patient's name and designated distal sigmoid donut. The specimen consists of a colonic donut measuring 2.5 x 2 x 1.5 cm. Multiple sutures are noted. Granular Operator sections are submitted in one cassette. / SHANTEL:victoriano 09/13/2022 TC:5 CPT: 77030, 31758 x2
[2022-09-13] MEDS: Lubricating Jelly 60 GM Tube 30 GM (08:26)
[2022-09-13] MEDS: 0.9% Normal Saline (Pres. free 10 ML Vial (10:45)
[2022-09-13] MEDS: BUPIVACAINE LIPOSOME/PF 20 ML VIAL OPERA.SITE (10:45)
--- NOTE | 2022-09-13 10:53 | PCM.OPRPT ---
Report of Operation Date of Procedure: 09/13/22 Pre-Operative Diagnosis: Recurrent sigmoid diverticulitis Post-Operative Diagnosis: Same Surgery/Procedure Performed:: Laparoscopic sigmoid colectomy Laparoscopic lysis of adhesions infraumbilical and right lower quadrant Laparoscopic bilateral transverses abdominal plane block Description of Surgical Findings:: Timeout informed consent was obtained. 57-year-old female was taken to the operating placed upon the table underwent general endotracheal ovation esthesia cefotetan 2 g were given intravenously she was placed in a low lithotomy position on a beanbag to help support the abdomen perineum were sterilely prepped and draped Rust catheter was placed to gravity Ioban draping was used to the right of the umbilicus 5 mm Visiport technology was used to gain access and the abdomen was insufflated with CO2 to a pressure of 10 mmHg pressure throughout the procedure 20 cc of Exparel mixed with 60 cc of 0.25% Marcaine diluted with 20 cc of saline was used as local anesthetic and was used for the bilateral tap block. There was apparent infraumbilical adhesions of omentum and small bowel to the anterior abdominal wall I had to place a 5 mm trocar in the right lower quadrant and additional 5 mm trocar in the epigastric area used that to gain access to lyse the adhesions there were adhesions of the right colon and cecum area to the pelvic area that had to sharply lysed hemostasis was stained or needed with the Enseal that allowed me then to place a 5 mm trocar in the right lower quadrant. Later in the procedure I upstage that to a 12 mm port. The in the anterior's of the colon were rapidly identified and fortunately she had a very long sigmoid colon allowing for a sigmoid colectomy rather than for mobilization of the left colon I incised the white line of Toldt identified the left ureter put a Hem-o-manuel clip to theron the area and then further dissected up the left pericolic gutter about midway. Came back to the sigmoid colon put it on stretch dissected free some adhesions to the tube ligation area on the left and then incised the mesentery took that down to the peritoneal reflection all that done with the Enseal device. Hemostasis was intact. I placed a 10 mm trocar suprapubically to allow for better elevation of the floppy sigmoid colon I then did not have the correct angle to put the [place] stapler so that is when I upstaged the right lower quadrant site the 12 mm port put a 60 mm [place] and and transected the rectosigmoid partial at the peritoneum I then made a mini Pfannenstiel incision slightly enlarging that transfer suprapubic incision cutting down to the fascia incised in the fascia transversely and then splitting the rectus vertically incising the peritoneum and placing a small wound protector exited the sigmoid colon found with the mesentery was transferred transected a small portion of remaining mesentery used a Kalpana clamp to crush the bowel and used a scalpel to transect the bowel that specimen was sent for analysis with a staple and being more distally I incorporated all of the areas of any ink marking the area of highest concern and even most proximal concern. Based a whip suture of 2-0 Prolene inserted a 33 mm anvil secured that in place and we secured the the pursestring That Betadine drop back with the abdomen the anus was gently sized with sizers and then that allowed for the circular anastomotic staple to be inserted per rectum that was nicely viewable was ascending direct visualization was mated with the anvil the 2 were approximated the colon was in good position with absolutely no tension the device was fired then it was removed the donuts were inspected noted be intact pelvis was filled with fluid rigid sigmoidoscope was inserted and air was insufflated was absolutely no air leak. Reinspected the abdomen aspirated and excess fluid there was no generous omentum to place in the pelvis. This point I did have a bilateral transabdominal plane block using the local and under laparoscopic visualization. I then additionally added local around the Pfannenstiel incision. I removed the 12 Coll[place] port from the right lower quadrant used a grainy needle and a 0 Vicryl to close that fascia removed the ports in the wound protector changed gowns and gloves I approximated the peritoneum with a running 0 Vicryl then approximated the suprapubic fascia with a running 0 PDS skin edges were approximated with either interrupted and running subicular 4 Monocryl Steri-Strips Telfa OpSite dressings applied sponge and instrument and needle counts were reported to the surgeon to be correct. Specimens sigmoid colon. Drains none blood loss 50 cc. She tolerated the procedure well was taken to the recovery room in satisfied condition without apparent complication Rafael Rogers M.D., F.A.C.SAbe Surgeon: Rafael Rogers
--- NOTE | 2022-09-13 17:20 | PCM.PN.SRG ---
Subjective Subjective Patient is up and ambulating. Notes soreness right lower quadrant. Objective Data Objective Data Vital Signs: Vital Signs Temp Pulse Resp BP Pulse Ox O2 Del Method O2 Flow Rate 97.7 F L 77 18 112/55 L 98 Room Air 4 09/13/22 16:27 09/13/22 16:27 09/13/22 16:27 09/13/22 16:27 09/13/22 16:27 09/13/22 16:27 09/13/22 12:41 Oxygen Flow Rate (L/min) 4 Oxygen Delivery Method Room Air Weight: 139 lb 1.787 oz Body Mass Index (BMI) 15.6 Intake & Output: Intake and Output for Last 24 Hours 09/11/22 09/12/22 09/13/22 23:59 23:59 23:59 Intake Total 2202 / 2202 Output Total 250 / 250 Balance 1951 / 1951 Lab / Micro Data Result Diagrams: 09/06/22 07:43 09/06/22 07:43 Labs: Laboratory Results - last 24 hr 09/13/22 05:56: POC Glucose 86 Assessment & Plan Assessment/Plan (1) Diverticulitis: PLAN: Patient is already up and moving several hours postoperatively. She appears comfortable and is moving well. Rust can be removed anytime convenient for her. Progress and prognosis at this point very good. Rafael Rogers M.D., F.A.C.S.
[2022-09-13] MEDS: Escitalopram Oxalate 10 MG Tablet 5 MG PO (21:18)
[2022-09-13] MEDS: Ensure Plus High Protein 120 ML LIQUID PO (21:18)
[2022-09-13] MEDS: Docusate Sodium 100 MG Capsule PO (21:18)
[2022-09-14] MEDS: Acetaminophen 500 MG Tablet 1000 MG PO ×4 (00:10→17:28)
[2022-09-14 00:16] VITALS: BP 105/52; PULSE 82; RESP 16; TEMP 36.9; O2SAT 97
[2022-09-14 04:27] VITALS: BP 105/52; PULSE 67; RESP 16; TEMP 37.1; O2SAT 97
[2022-09-14 06:19] LABS: Hematocrit 36.8 % (37-47); Hemoglobin 11.9 g/dL (12.0-15.0); Mean Corp Hgb Conc 32.3 g/dL (32-36); Mean Corpuscular Hgb 30.1 pg (27.0-32.0); Mean Corpuscular Volume 93.2 fL (81-99); Platelet Count 325 K/mm3 (150-450); RBC Distribution Width CV 13.7 % (11.6-14.6); RBC Distribution Width SD 47.2 fl (35.1-43.9); Red Blood Count 3.95 M/mm3 (4.2-5.4); White Blood Count 13.6 K/mm3 (4.4-11.0)
--- NOTE | 2022-09-14 06:37 | PCM.PN.SRG ---
Subjective Subjective No nausea.Patient has discomfort right lower quadrant passing flatus. Ambulating well. Rust catheter has been removed Objective Data Objective Data Vital Signs: Vital Signs Temp Pulse Resp BP Pulse Ox O2 Del Method O2 Flow Rate 98.8 F 67 16 105/52 L 97 Room Air 4 09/14/22 04:27 09/14/22 04:27 09/14/22 04:27 09/14/22 04:27 09/14/22 04:27 09/14/22 04:27 09/13/22 12:41 Oxygen Flow Rate (L/min) 4 Oxygen Delivery Method Room Air Weight: 139 lb 1.787 oz Body Mass Index (BMI) 15.6 Intake & Output: Intake and Output for Last 24 Hours 09/12/22 09/13/22 09/14/22 23:59 23:59 23:59 Intake Total 2952 / 2952 768.67 / 768.67 Output Total 375 / 925 1150 / 1150 Balance 257 / 2026 -381.33 / -381.33 Lab / Micro Data Result Diagrams: 09/14/22 05:41 09/06/22 07:43 Labs: Laboratory Results - last 24 hr 09/13/22 05:56: POC Glucose 86 09/14/22 05:41: WBC 13.6 H, RBC 3.95 L, Hgb 11.9 L, Hct 36.8 L, MCV 93.2, MCH 30.1, MCHC 32.3, RDW Std Deviation 47.2 H, RDW Coeff of Zulma 13.7, Plt Count 325, MPV 10.0 Physical Exam Narrative Alert comfortable absolutely no distress Resp normal respiratory effort GI GI Narrative: Soft, dressings are clean and dry, just slightly distended Assessment & Plan Assessment/Plan (1) Diverticulitis: PLAN: Patient is making incredible progress. She will continue to mobilize. Allow transitional diet. Possible discharge later today. Rafael Rogers M.D., F.A.C.S.
[2022-09-14 06:50] VITALS: O2SAT 98
[2022-09-14 06:53] LABS: Anion Gap 6 (5-15); BUN 7 mg/dL (7-18); BUN/Creat Ratio 10.7 RATIO (10-20); Calcium,Total 8.5 mg/dL (8.5-10.1); Chloride 107 mmol/L (98-107); Creatinine, Serum 0.65 mg/dL (0.55-1.02); EST Glomerular Filtration Rate 99 mL/min (>60); Est Glom Filt Rate - Afr Amer 119 mL/min (>60); Estimated Creatinine Clearance 92.83 ml/min; Glucose 91 mg/dL (74-106); Potassium 3.7 mmol/L (3.5-5.1); Sodium Level 139 mmol/L (136-145)
[2022-09-14 09:04] VITALS: BP 107/47; PULSE 70; RESP 18; TEMP 36.9; O2SAT 97
[2022-09-14] MEDS: Docusate Sodium 100 MG Capsule PO (09:11)
[2022-09-14] MEDS: Ensure Plus High Protein 120 ML LIQUID PO (09:16)
--- NOTE | 2022-09-14 09:42 | NURSING ---
Breakfast came. Assisted pt in getting into chair to sit. Educated importance of sitting in chair Vs laying in bed. Pt states she has been ambulating in the [place]ina frequently. This RN informed pt to keep ambulating but to sit in chair as well.
[2022-09-14] MEDS: oxyCODONE 5 MG Tablet PO (11:31)
--- NOTE | 2022-09-14 12:54 | CASEMGMT ---
N?CM?TELEVISION ANCHOR?CM?to room to meet with patient for initial transition planning/care coordination?assessment.?RN?CM?introduced self and role at [facility].? Pt voices understanding and consents to?assessment?at this time.? Pt resting in bed in no distress at this time.? Pt is A/O at this time and answers all questions appropriately.?? Care providers, pharmacy, and demographics verified/updated at this time. PCP: Dr Arroyo Specialists: Dr Rogers-surgeon Preferred Pharmacy: [facility] retail Insurance: [place] Prescription Benefit:?Yes Living Will/HPOA:?Pt does not currently have LW/HCPOA and declines info at this time.? Pt made aware that she can contact as an out-pt and make appt in the future if she decides she would like to talk with someone about this or would like to utilize [facility] social work for advanced directive completion.???Patient expresses understanding. LNOK: Mother, Shonna. Sister. Niece, Aixa Living Arrangements: Lives w/mother and sig other, Shawn, in 2-story home w/basement w/5 steps to enter. [employer]. Indep w/ADL's and IADL's. 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 Transportation:?Pt states drives self and states no transportation concerns at this time.? DME: ? Denies using any DME and denies needs.? HHC/SNF: No hx of either. No needs identified. 6 clicks is 23, indicating pt can go home alone. Pt wishes to return home and states has no concerns with going home at time of discharge.??CM?to follow for any discharge planning/needs.? Pt voices no concerns/needs at this time.? Advised pt to ask for?CM?if any questions/concerns/needs arise.? Voices understanding. PLAN:??Home Jalyn BSN?RN?CM
--- NOTE | 2022-09-14 13:25 | NURSING ---
Pt states she has had 3 liquidy bowel movements thus far today. Pt also states that oxyir didn't really help her pain that much. This RN talked with her about taking 10mg instead of 5mg. Pt does not want to try. No thanks, I'll stick with the tylenol.
[2022-09-14] MEDS: Ondansetron ODT 4 MG Tablet PO (14:39)
[2022-09-14 14:42] VITALS: BP 101/61; PULSE 74; RESP 19; TEMP 36.6; O2SAT 96
--- NOTE | 2022-09-14 17:02 | PCM.DC.SUM ---
Providers Date of Admission: 09/13/22 Date of Discharge: 09/14/22 Primary Care Physician: Dr. Iker Arroyo MD Reason For Visit: LAP SIG COLECTOMY MOBILIZATION OF SPLENIC FLEXURE Diagnosis Discharge Diagnosis (1) Diverticulitis: Status: Acute Code(s): K57.92 - Diverticulitis of intestine, part unspecified, without perforation or abscess without bleeding Medications at Discharge Home Medications cholecalciferol (vitamin D3) 25 mcg (1,000 unit) capsule 25 mcg PO DAILY SUPPLEMENT 03/13/21 escitalopram oxalate 5 mg tablet 5 mg PO QHS ANXIETY 03/13/21 calcium carbonate 600 mg calcium (1,500 mg) tablet 600 mg PO DAILY SUPPLEMENT 06/21/22 multivitamin 1 tab PO DAILY SUPPLEMENT 06/21/22 Hospital Course Operations - (Laparoscopic sigmoid colectomy Laparoscopic lysis of adhesions infraumbilical and right lower quadrant Laparoscopic bilateral transverses abdominal plane block) Summary of Care Provided Minutes Spent on Discharge: 20 Hospital Course: Patient is a 57 y/o F who presented for an elective laparoscopic sigmoid colectomy for recurrent diverticulitis by Dr. Rogers on 09/13/22. Patient tolerated the procedure well. She had an uneventful hospitalization. Upon discharge, patient noted right lower quadrant discomfort. She denies nausea, vomiting, fever. She notes positive flatus and BM. She was tolerating her transitional diet. Weight / BMI Weight Weight: 139 lb 1.787 oz Body Mass Index (BMI) 15.6 ABG / Lab / Microbiology Data Result Diagrams: 09/14/22 05:41 09/14/22 05:41 Laboratory: Laboratory Results - last 24 hr 09/14/22 05:41: WBC 13.6 H, RBC 3.95 L, Hgb 11.9 L, Hct 36.8 L, MCV 93.2, MCH 30.1, MCHC 32.3, RDW Std Deviation 47.2 H, RDW Coeff of Zulma 13.7, Plt Count 325, MPV 10.0 09/14/22 05:41: Sodium 139, Potassium 3.7, Chloride 107, Carbon Dioxide 26.0, Anion Gap 6, BUN 7, Creatinine 0.65, Estim Creat Clear Calc 92.83, Est GFR (MDRD) Af Amer 119, Est GFR (MDRD) Non-Af 99, BUN/Creatinine Ratio 10.7, Glucose 91, Calcium 8.5 D/C Instructions Discharge Diet: Light diet - advance as tolerated (if you have questions about your diet instructions, please talk to you doctor.) May shower in (days): 1 Call your doctor if your incision/area has: Continuous Slow Oozing, Sudden Increased Bleeding, Increased Pain/ Swelling, Increased Redness and Foul Smelling Discharge Call your doctor if you observe: Fever of 101 or Higher Suture Line Care: Avoid Pulling/Pushing and Avoid Pinching/Bending Additional Dressing/Incision Instructions: Change or remove dressing in 4 days. Leave steri-strips in place for 1 week. Please Follow Up With: Rafael Rogers MD When: Call [phone] to make an appointment to be seen in about 10 days. Meaningful Use Info Meaningful Use Diagnoses (Choose all that apply): None applicable Discharge Plan Admission Admit Date/Time: 09/13/22 05:24 Primary Reason for Your Visit: Recurrent diverticulitis Attending Provider: Rafael Rogers Primary Care Provider: Iker Arroyo Instructions Additional Instructions / Restrictions: Recommend taking over the counter Tylenol 1000 mg every 6 hours as needed for pain for 5 days. You may also alternate with ibuprofen 600 mg every 8 hours as needed for pain. We recommend a heating pad at home for comfort. Discharge Orders/Prescriptions Prescriptions: Continued cholecalciferol (vitamin D3) 25 mcg (1,000 unit) capsule 25 mcg PO DAILY escitalopram oxalate 5 mg tablet 5 mg PO QHS calcium carbonate 600 mg calcium (1,500 mg) tablet 600 mg PO DAILY multivitamin Tablet 1 tab PO DAILY Referrals / Follow Up: Iker Arroyo MD [Primary Care Provider] - Rafael Rogers MD [Med Staff - Active Staff] - (Contact our office to schedule a follow-up for 10 days post-op) Disposition Disposition (needs filled in before D/C Order can be placed): Home, Self Care Charges/Coding Visit Charges Inpatient E&M: 65343 Disch Hosp (post-op; no charge)
== END 2022-09-14 17:40 | disposition home or self-care (01) | DRG 331 ==
LOC: ACINP 10:01 → MS3 11:55
PROVIDERS: Anesthesiology; Admitting Provider Surgery; PCP Family Medicine; Referring Provider Surgery; Visit Provider Surgery
PROC: 0DTN0ZZ Resection of Sigmoid Colon, Open Approach (ICD-10-PCS; CPT 44204; principal; 2022-09-13 07:05)
DX: K57.32 Diverticulitis of large intestine without perforation or abscess without bleeding (principal); F17.210 Nicotine dependence, cigarettes, uncomplicated; F41.9 Anxiety disorder, unspecified; Z79.899 Other long term (current) drug therapy
CPT/HCPCS: 36415; 80048; 82962; 83735; 85027; 88307; 93005; 94668; 94762; 99252; J7120; C1760; G0463; J2405; J3475; J3490

== ENCOUNTER → 2022-11-29 | Outpatient (CLI) | payer BC, SELFPAY ==
--- NOTE | 2022-11-29 15:03 | RAD_ITS ---
INDICATION: change in bowel habits EXAMINATION/TECHNIQUE: X-RAY - XR Abdomen W/ Decub and/or Erect Views COMPARISON: None FINDINGS: BOWEL GAS PATTERN: Non-obstructive. Significant colonic fecal retention. FREE AIR: None demonstrated. ORGANOMEGALY: Not seen. CALCIFICATIONS: Calcifications in the region of the bilateral renal fossae and adjacent to the left L2 transverse process. BONES AND SOFT TISSUES: No acute pathology. BTL clips in the pelvis. RAD/Abd Inc Decub and/or Erect IMPRESSION: Non-obstructive bowel gas pattern. Colonic fecal retention suggests possible clinical constipation. Possible bilateral nephrolithiasis. Electronically Signed: Vitor Diamond MD at 20:22 EDT ,
== END | disposition home or self-care (01) ==
PROVIDERS: PCP Family Medicine; Referring Provider Physician Assistant; Visit Provider Physician Assistant
DX: R19.4 Change in bowel habit (principal); R14.0 Abdominal distension (gaseous)
CPT/HCPCS: 74019

== ENCOUNTER → 2023-06-27 | Outpatient (CLI) | payer BC, SELFPAY ==
--- NOTE | 2023-06-27 15:47 | BI_ITS ---
MAMMOGRAPHY - BILATERAL SCREENING REASON FOR EXAM: Female, 58 years old. Routine annual screening examination. PERTINENT HISTORY: Grandmother with breast cancer. History of prior right excisional breast biopsy. TECHNIQUE: Digital bilateral breast agatha (3D mammographic acquisition) in the CC and MLO projections. 2-D mediolateral oblique (MLO) and craniocaudad (CC) views of both breasts were obtained. CAD: Full Field Digital Mammography with Computer Added Detection was performed. COMPARISON: Comparison is made with prior study dated August 12, 2020 and June 27, 2019. FINDINGS: Breast Composition: The breasts are extremely dense, which lowers the sensitivity of mammography. There are no dominant masses or suspicious calcifications. No other significant abnormalities are identified. There has been no significant change since the prior study. BI/SCREENING MAMM (CAD), BILAT IMPRESSION: Stable bilateral screening mammogram. Yearly follow-up mammogram recommended. (A) ASSESSMENT CATEGORY: BIRADS Category 1: Negative. A letter regarding these results will be sent to the patient by the facility within 30 days. Approximately 10% of breast cancers are not detected by mammography. A normal mammogram should not delay biopsy of a clinically suspicious abnormality. [id number] Electronically Signed: Cornelio Jean MD at 8:21 EST ,
== END | disposition home or self-care (01) ==
LOC: OPBI 15:46
PROVIDERS: PCP Family Medicine; Referring Provider Family Medicine; Visit Provider Family Medicine
DX: Z12.31 Encounter for screening mammogram for malignant neoplasm of breast (principal)
CPT/HCPCS: 77067

== ENCOUNTER → 2023-08-10 | Outpatient (CLI) | payer BC, SELFPAY ==
[2023-08-10 10:48] LABS: Anion Gap 5 (5-15); BUN 15 mg/dL (7-18); BUN/Creat Ratio 22.3 RATIO (10-20); Calcium,Total 9.4 mg/dL (8.5-10.1); Chloride 108 mmol/L (98-107); Cholesterol 218 mg/dL (200); Creatinine, Serum 0.67 mg/dL (0.55-1.02); EST Glomerular Filtration Rate 95 mL/min (>60); Est Glom Filt Rate - Afr Amer 115 mL/min (>60); Glucose 98 mg/dL (74-106); High Density Lipoprotein 53 mg/dL; Potassium 3.9 mmol/L (3.5-5.1); Sodium Level 139 mmol/L (136-145); Thyroid Stim Hormone (TSH) 0.56 uIU/mL (0.358-3.74); Triglycerides 120 mg/dL; Very Low Density Lipoprotein 24 mg/dL (5-40)
== END | disposition home or self-care (01) ==
LOC: MFPLAB 08:48
PROVIDERS: PCP Family Medicine; Visit Provider Family Medicine
DX: Z13.220 Encounter for screening for lipoid disorders (principal); Z13.29 Encounter for screening for other suspected endocrine disorder; R82.90 Unspecified abnormal findings in urine
CPT/HCPCS: 36415; 80048; 80061; 84443

== ENCOUNTER → 2024-04-18 | Outpatient (CLI) | payer BC, SELFPAY ==
[2024-04-18 16:03] LABS: Bacteria 0 SEEN /hpf (None Seen); Mucous, Urine 0 SEEN /hpf (<or=2+); Squamous Epithelial Cells - UA 0 SEEN /hpf (5-10)
[2024-04-18 17:35] LABS: Absolute Lymphocyte Count 3.51 X10^3/uL (0.83-4.51); Absolute Neutrophil Count 4.8 X10^3/uL (2.0-7.7); Basophil# 0.05 X10^3/uL; Basophil% 0.5 % (0-1); Eosinophils% 4.1 % (0-5); Hematocrit 39.3 % (37-47); Hemoglobin 12.8 g/dL (12.0-15.0); Lymphocyte # 3.51 X10^3/ul (0.83-4.51); Lymphocyte % 36.3 % (19-41); Mean Corp Hgb Conc 32.6 g/dL (32-36); Mean Corpuscular Hgb 29.4 pg (27.0-32.0); Mean Corpuscular Volume 90.1 fL (81-99); Mean Platelet Vol. 9.7 fl (6.2-12.0); Monocyte# 0.83 X10^3/uL; Monocyte% 8.6 % (0-10); NRBC Flagged by Analyzer 0 % (0-5); Neutrophil # 4.83 X10^3/uL (2.7-7.7); Neutrophil % 50.1 % (47-70); Platelet Count 427 K/mm3 (150-450); RBC Distribution Width CV 13.9 % (11.6-14.6); RBC Distribution Width SD 46.5 fl (35.1-43.9); Red Blood Count 4.36 M/mm3 (4.2-5.4); White Blood Count 9.7 K/mm3 (4.4-11.0)
[2024-04-18 17:46] LABS: Color, Urine Yellow (Yellow); Glucose, Dipstick Normal (Normal); Ketone-Dipstick Negative (Negative); Leukocyte Esterase-Dipstick 100 /ul (Negative); Nitrite-Dipstick Negative (Negative); Occult Blood-Urine 150 /ul (Negative); Protein-Dipstick Negative (Negative); Specific Gravity, Urine 1.015 (1.002-1.030); Urine Bilirubin Dipstick Negative (Negative); Urine Clarity Clear (Clear); Urine Urobilinogen Normal (Normal); Urine pH 6.5 (5.0 - 8.0)
[2024-04-18 17:58] LABS: Erythrocyte Sedimentation Rate 22 mm/hr (0-30)
[2024-04-18 18:28] LABS: Vitamin B12 319 pg/mL (211-911); Vitamin D,25 Hydroxy 36.5 ng/mL
[2024-04-18 18:34] LABS: Hemoglobin A1c 5.7 % (3.8-5.6)
[2024-04-18 18:41] LABS: Red Blood Cells-Urine 0-5 SEEN /hpf (0-5); White Blood Cells 0-5 SEEN /hpf (0-5)
[2024-04-18 18:58] LABS: ALB/GLOB Ratio 0.9 RATIO (0.9-2.4); AST(SGOT) 20 U/L (15-37); Alanine Aminotransfer ALT/SGPT 25 U/L (13-56); Albumin, Serum 3.5 g/dL (3.2-5.0); Alkaline Phosphatase 98 U/L (45-117); Anion Gap 6 (5-15); BUN 10 mg/dL (7-18); BUN/Creat Ratio 16.2 RATIO (10-20); Chloride 108 mmol/L (98-107); Creatinine, Serum 0.62 mg/dL (0.55-1.02); EST Glomerular Filtration Rate 104 mL/min (>60); Est Glom Filt Rate - Afr Amer 126 mL/min (>60); Globulin 4.1 g/dL (2.2-4.2); Glucose 74 mg/dL (74-106); Iron 33 ug/dL (50-170); Potassium 3.8 mmol/L (3.5-5.1); Protein, Total 7.6 g/dL (6.4-8.2); Sodium Level 136 mmol/L (136-145); T4 Free Direct 0.81 ng/dL (0.76-1.46); Thyroid Stim Hormone (TSH) 0.562 uIU/mL (0.358-3.740)
== END | disposition home or self-care (01) ==
LOC: MFPLAB 16:01
PROVIDERS: PCP Family Medicine; Visit Provider Family Medicine
DX: R53.83 Other fatigue (principal); R35.89 Other polyuria
CPT/HCPCS: 36415; 80053; 81001; 82306; 82533; 82607; 83036; 83540; 84439; 84443; 84481; 85025; 85652

== ENCOUNTER → 2024-08-06 | Outpatient (CLI) | payer BC, SELFPAY ==
--- NOTE | 2024-08-06 14:01 | US_ITS ---
STUDY: RENAL ULTRASOUND - COMPLETE REASON FOR EXAM: Female, 59 years old. Flank pain and fever TECHNIQUE: Ultrasound evaluation of the kidneys was performed with real-time and static jones-scale imaging. COMPARISON: None. FINDINGS: RIGHT KIDNEY: Normal location of the right kidney, which is normal in size. The right kidney measures 9.7 x 5.5 x 5.0 cm. There is a normal cortex of the right kidney. The renal cortex measures 1.7 cm. There is no right renal mass or cyst. There is a nonobstructing 0.8 cm stone. There is no right hydronephrosis. DISTAL RIGHT URETER: There is non-visualization of the distal right ureter. There is no demonstrated right ureterovesical junction calculus. There is a visualized right ureteral jet. LEFT KIDNEY: Normal location of the left kidney, which is normal in size. The left kidney measures 10.3 x 5.3 x 4.9 cm. There is a normal cortex of the left kidney. The renal cortex measures 1.7 cm. There is no left renal mass or cyst. There are no left renal calculi. There is no left hydronephrosis. DISTAL LEFT URETER: There is non-visualization of the distal left ureter. There is no demonstrated left ureterovesical junction calculus. There is a visualized left ureteral jet. AORTA: There is no elongation or tortuosity of the abdominal aorta. I.V.C.: The IVC is patent. BLADDER: The bladder is sonographically normal US/Kidney and Bladder IMPRESSION: No suspicious sonographic findings, nonobstructing right nephrolithiasis. Electronically Signed: Gerardo Beltran MD at 16:25 EST ,
== END | disposition home or self-care (01) ==
LOC: US 13:52
PROVIDERS: PCP Family Medicine; Referring Provider Urology; Visit Provider Urology
DX: N39.0 Urinary tract infection, site not specified (principal)
CPT/HCPCS: 76770

== ENCOUNTER → 2024-08-09 | Outpatient (CLI) | payer BC, SELFPAY ==
--- NOTE | 2024-08-09 14:53 | BD_ITS ---
STUDY: DUAL ENERGY X-RAY ABSORPTIOMETRY / DXA REASON FOR EXAM: Female, 59 years old. 627.8Menopausal postmenopausalBONE DENSITY REASON FOR EXAM TECHNIQUE: Bone Mineral Density (BMD) measurements of lumbar spine and bilateral hips were obtained. COMPARISON: 06/27/2019 FINDINGS: Lumbar Spine (L1-L4): g/cm2 (0.830) / T-score (-2.0) / Z-score (-0.5) Findings are suggestive of osteopenia with a moderate fracture risk. Left Femur Total: g/cm2 (0.716) / T-score (-1.8) / Z-score (-0.8) Left Femoral Neck: g/cm2 (0.629) / T-score (-2.0) / Z-score (-0.6) Right Femur Total: g/cm2 (0.729) / T-score (-1.7) / Z-score (-0.7) Right Femoral Neck: g/cm2 (0.66) / T-score (-2.0) / Z-score (-0.7) BD/Dexa Bone Density Study IMPRESSION: The patient is considered osteopenic as outlined below according to World [place] Organization (WHO) criteria with a moderate fracture risk. There has been no change of bone density since the previous examination. Reference Information: The T-score is the number of standard deviations above or below the standard which is normal for young adults at their peak bone mineral density. The World Health Organization (WHO) interprets the T-scores as follows: Above -1 Normal bone density Between -1 and -2.5 Osteopenia Equal to / or below -2.5 Osteoporosis As a practical clinical guideline, osteopenia may be graded as follows: Mild -1 through -1.5 Moderate -1.6 through -2.0 Severe -2.1 through -2.4 The Z-score is the number of standard deviations above or below age-matched controls. A Z-score of less than -1.5 would be considered abnormal. References: 1. NIH Osteoporosis and Related Bone Diseases www osteo.org 2. International Society for Clinical Densitometry www iscd.org 3. National Osteoporosis Foundation www nof.org Electronically Signed: Florencio Mcdowell MD at 13:18 EST ,
--- NOTE | 2024-08-09 14:54 | BI_ITS ---
MAMMOGRAPHY - BILATERAL SCREENING 3-D TOMOSYNTHESIS REASON FOR EXAM: Female, 59 years old. SCREENING PERTINENT HISTORY: No significant family history. TECHNIQUE: 2-D mammograms and 3-D Tomosynthesis of the breast (s) were performed. CAD was performed. COMPARISON: 06/27/2023 FINDINGS: The breast composition is Extermely dense tissue. Scattered benign calcifications are seen. No dense spiculated masses or suspicious microcalcifications are identified. No architectural distortion is identified. There is no skin thickening or retraction. There has been no significant change since the prior study. BI/SCRN MAMM (CAD)W/JINA BILAT IMPRESSION: No mammographic signs of malignancy. Routine yearly mammograms recommended. ASSESSMENT CATEGORY: BIRADS Category 1: Negative. A letter regarding these results will be sent to the patient by the facility within 30 days. FOLLOW UP RECOMMENDATION: Yearly follow up mammogram recommended. (A) Approximately 10% of breast cancers are not detected by mammography. A normal mammogram should not delay biopsy of a clinically suspicious abnormality. Electronically Signed: Florencio Mcdowell MD at 20:10 EST ,
== END | disposition home or self-care (01) ==
LOC: OPBI 14:52
PROVIDERS: PCP Family Medicine
DX: Z12.31 Encounter for screening mammogram for malignant neoplasm of breast (principal); Z13.820 Encounter for screening for osteoporosis; Z78.0 Asymptomatic menopausal state
CPT/HCPCS: 77063; 77067; 77080

== ENCOUNTER → 2024-08-23 | Outpatient (CLI) | payer BC, SELFPAY ==
--- NOTE | 2024-08-23 07:28 | CT_ITS ---
INDICATION: KIDNEY STONE EXAMINATION: CT Abdomen And Pelvis W/O Contrast Injection TECHNIQUE: Helically acquired images were obtained of the abdomen and pelvis without the use of IV contrast. A radiation dose optimization technique was used for this scan. Oral contrast: None. COMPARISON: 05/03/2022 FINDINGS: Evaluation of the solid organs and vascular structures is limited without intravenous contrast. Visualized lung bases: Unremarkable Liver: Unremarkable Gallbladder: Unremarkable Spleen: Unremarkable Pancreas: Unremarkable Adrenal Glands: Unremarkable Kidneys: Multiple bilateral nonobstructing stones, largest on the right measuring 5 mm and in the upper pole while largest on the left measures 4 mm also in the upper pole. Vasculature: Moderate aortoiliac atherosclerotic disease. GI Tract: Unremarkable Lymphadenopathy: None Peritoneum: No ascites. Bladder: Unremarkable Reproductive organs: Unremarkable Bones/Soft tissues: Mild scattered degenerative changes of the visualized spine. CT/Abdomen/Pelvis without Cont IMPRESSION: No acute abnormalities in the abdomen or pelvis. No hydronephrosis or obstructing renal/ureteral stones. Bilateral nonobstructing nephrolithiasis. Electronically Signed: Karl Duron MD at 22:22 EST ,
== END | disposition home or self-care (01) ==
LOC: CT 07:27
PROVIDERS: PCP Family Medicine; Referring Provider Urology; Visit Provider Urology
DX: N20.0 Calculus of kidney (principal)
CPT/HCPCS: 74176

== ENCOUNTER 2024-08-29 10:06 | Day surgery (SDC) | payer BC, SELFPAY ==
[2024-08-29] VITALS (9 sets, daily range): BP systolic 103–117; BP diastolic 56–65; PULSE 62–80; RESP 16; TEMP 36.1–36.6; O2SAT 96–99; BMI 23.3
--- NOTE | 2024-08-29 10:28 | OP.PCM_ITS ---
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 She presents for surgical intervention. Informed consent was obtained. She was taken to the operating room and placed on the lithotripsy table. Anesthesia monitored the head, neck, airway, IV access and vital signs throughout the case. Once anesthesia was appropriately administered, she was positioned on the lithotripsy table. The stone was easily visualized. 3000 shocks were applied and the stone appeared to be fragmented at the conclusion of the case. She was awakened and taken to the recovery room in good condition. There were no complications during this procedure. Surgical Findings: Right stone easily visualized. Complications Complications: No Admit VTE Documentation VTE Present on Admission: Yes VTE Mechan Device Prophylaxis: SCD's VTE Pharm Prophylaxis ordered?: No Reason prophylaxis not ordered: Treatment Not Indicated
--- NOTE | 2024-08-29 10:31 | EX.PCM.DISCH ---
Discharge Instructions Diet Discharge Diet: No restrictions Activity Discharge Activity: Return to Normal Activity Dressing / Incision Call your doctor if you observe: Fever of 101 or Higher, Inability to urinate and Inability to have a bowel movement Follow Up Care Please Follow Up With: Venice Ruano MD When: The office will call the patient to make arrangements for left-sided intervention. Test Results: Test results from this visit will be discussed in further detail at your follow-up appointment, if applicable. Discharge Plan Admission Attending Provider: Venice Ruano Primary Care Provider: Karl Arroyo Instructions Print Language: Slovenian Discharge Orders/Prescriptions Prescriptions: New ondansetron 8 mg tablet,disintegrating 8 mg PO Q8H PRN (Reason: nausea and vomiting) Qty: 10 0RF oxycodone-acetaminophen 5-325 mg tablet 1 tab PO Q8H PRN (Reason: pain) 3 Days Qty: 10 0RF cephalexin 500 mg capsule 500 mg PO Q12 3 Days Qty: 6 0RF Continued cholecalciferol (vitamin D3) 25 mcg (1,000 unit) capsule 25 mcg PO DAILY escitalopram oxalate 5 mg tablet 5 mg PO QHS calcium carbonate 600 mg calcium (1,500 mg) tablet 600 mg PO DAILY multivitamin Tablet 1 tab PO DAILY Referrals / Follow Up: Karl Arroyo MD [Primary Care Provider] - Disposition Disposition (needs filled in before D/C Order can be placed): Home, Self Care
[2024-08-29] MEDS: 0.9% Normal Saline (1000mL) 1,000 ML 15 ML IV (10:48)
[2024-08-29 11:00] LABS: Hematocrit 39.4 % (37-47); Hemoglobin 13.4 g/dL (12.0-15.0); Mean Corpuscular Hgb 30.3 pg (27.0-32.0); Mean Corpuscular Volume 89.1 fL (81-99); Mean Platelet Vol. 9.7 fl (6.2-12.0); Platelet Count 391 K/mm3 (150-450); RBC Distribution Width CV 13.5 % (11.6-14.6); RBC Distribution Width SD 44.1 fl (35.1-43.9); Red Blood Count 4.42 M/mm3 (4.2-5.4); White Blood Count 8.4 K/mm3 (4.4-11.0)
--- NOTE | 2024-08-29 11:04 | PRE.ANES_ITS ---
ASA Classification* ASA Classification ASA Classification: 2 Assessment & Plan Anesthesia* Anesthesia Assessment Anesthesia Assessment: Discussed sedation and/or anesthesia options, risks, benefits, and alternatives with patient/parents/legal guardian/POA. Questions invited. The patient/parents/legal guardian/POA seems to understand and agrees to proceed with anesthesia plan. Reviewed the physical assessment, medical history, allergy history and patient home medications list prior to surgery/procedure/anesthetic and documented any changes. Performed airway and anesthesia risk assessments. Anesthesia Type Anesthesia Type: General Anesthesia Focused Assessment* Temperature: 98 F Pulse Rate: 80 Blood Pressure: 112/56 Respiratory Rate: 16 Pulse Ox: 96 Airway Assessment Mouth opens: >3 cm Mallampati Score: II Focused Labs Anesthesia Preop lab: CBC WBC 8.4 K/mm3 (4.4-11.0) 08/29/24 10:50 RBC 4.42 M/mm3 (4.2-5.4) 08/29/24 10:50 Hgb 13.4 g/dL (12.0-15.0) 08/29/24 10:50 Hct 39.4 % (37-47) 08/29/24 10:50 Plt Count 391 K/mm3 (150-450) 08/29/24 10:50 CHEMISTRY Potassium 3.8 mmol/L (3.5-5.1) 04/18/24 16:02 Sodium 136 mmol/L (136-145) 04/18/24 16:02 Magnesium 2.2 mg/dL (1.6-2.6) 09/06/22 07:43 BUN 10 mg/dL (7-18) 04/18/24 16:02 Creatinine 0.62 mg/dL (0.55-1.02) 04/18/24 16:02 Glucose 74 mg/dL (74-106) 04/18/24 16:02 POC Glucose 86 mg/dL (74-106) 09/13/22 05:56 TSH 0.562 uIU/mL (0.358-3.740) 04/18/24 16:02 COAG Pre-Assessment Diagnosis/Proposed Procedure Planned Operative Procedure(s): RIGHT RENAL ESWL Anesthesia History Anesthesia History - setter molding and coremaking machines: Anesthesia History - setter molding and coremaking machines Hx Hospitalization No 08/28/24 08:28 Any Problems With Anesthesia No 08/28/24 08:28 Cholinesterase deficiency No 08/28/24 08:28 You/Your Family Experience No 08/28/24 08:28 fever (hyperthermia) with Relationship Recent Exposure to Contagious No 08/29/24 10:34 Disease Does patient have nerve No 08/28/24 08:28 stimulator Patient instructed to have device shut off --Does patient have Pacemaker No 08/29/24 10:34 or ICD? When Was Last Pacemaker Check QUESTION #4 FULL TEXT: You/Your Family Experience fever (hyperthermia) with Anesthesia Last Oral Intake Last Oral intake: Last Oral Intake NPO since 06:00 08/29/24 10:34 Meds taken in AM with sips of No 08/29/24 10:34 water? Meds patient instructed to take am of surgery PONV PONV - setter molding and coremaking machines: PONV - setter molding and coremaking machines Female Yes 08/28/24 08:28 HX of Motion Sickness No 08/28/24 08:28 HX of N/V After Surgery No 08/28/24 08:28 Non-Smoker No 08/28/24 08:28 Duration of Surgery greater No 08/28/24 08:28 than 60 minutes Number of Risk Factors 1 08/28/24 08:28 PONV Score Low Risk 08/28/24 08:28 Height & Weight Height & Weight: Anesthesia: Height & Weight Height 5 ft 7 in 08/29/24 10:34 Weight: 67.4 kg 08/29/24 10:34 Body Mass Index (BMI) 23.3 08/29/24 10:34 Respiratory Assessment Respiratory Assessment - setter molding and coremaking machines: Respiratory Tract Infection Hx - setter molding and coremaking machines Hx Respiratory Tract Infection Yes: PNEUMONIA 08/14/2024 08/28/24 08:28 STOP Sleep Apnea STOP Sleep Apnea - setter molding and coremaking machines: STOP Sleep Apnea - setter molding and coremaking machines Hx Hypertension No 08/28/24 08:28 Hx Sleep Apnea Yes: NONCOMPLIANT 08/28/24 08:28 CPAP No 08/28/24 08:28 BIPAP No 08/28/24 08:28 Do you snore loudly (louder than talking or can be heard Do you often feel tired/ fatigued/ sleepy during daytime? Has anyone observed you stop breathing during sleep? STOP Results Positive 08/28/24 08:28 QUESTION #5 FULL TEXT : Do you snore loudly (louder than talking or can be heard through closed doors)? 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 Specify any problems Hx of Preganancy in last 3 N/A 08/28/24 08:28 Months Nurse Filling Out Transfusion NBUCHER 08/28/24 08:28 & Questions: Date: 08/28/24 08/28/24 08:28 Time: 08:30 08/28/24 08:28 Patient unable to answer at this time (ie. confused, unrespo /Reproduction History /Reproductive History - setter molding and coremaking machines: /Reproductive Hx- setter molding and coremaking machines Hx Now No 08/28/24 08:28 Gestational Age (in weeks): EDC: Hx Hx Para Hx Section SAB No 08/28/24 08:28 Active Medications Active Medications: Current Medications Generic Name Dose Route Start Last Admin Trade Name Freq PRN Reason Stop Dose Admin Cefazolin Sodium 2 gm/ N/A 20 mls @ 400 mls/hr 08/29/24 12:05 IV 08/29/24 12:07 PREOP ONE Sodium Chloride 1,000 mls @ 15 mls/hr 08/29/24 10:15 08/29/24 10:48 IV 09/03/24 23:34 15 mls/hr .Q48H KIRSTIN Administration Protocol PFSH Medical History Kidney stone Anxiety Depression Shoulder pain Wears dentures Post-menopausal Arthritis History of diverticulitis Smoker Anxiety and depression Home Medications ?Medication ?Instructions ?Recorded ?Last Taken ?Type cholecalciferol (vitamin D3) 25 25 mcg PO DAILY SUPPLEMENT 03/13/21 Unknown History mcg (1,000 unit) capsule escitalopram oxalate 5 mg tablet 5 mg PO QHS ANXIETY 03/13/21 Unknown History calcium carbonate 600 mg PO DAILY SUPPLEMENT 06/21/22 Unknown History multivitamin 1 tab PO DAILY SUPPLEMENT 06/21/22 Unknown History cephalexin 500 mg capsule 500 mg PO Q12 post-operative 3 08/29/24 Unknown Rx days #6 CAPSULES ondansetron 8 mg disintegrating 8 mg PO Q8H PRN nausea and 08/29/24 Unknown Rx tablet vomiting #10 tabs oxycodone-acetaminophen 5 mg-325 1 tab PO Q8H PRN pain 3 days #10 08/29/24 Unknown Rx mg tablet tabs Allergy/AdvReac Type Severity Reaction Status Date / Time No Known Allergies Allergy Verified 08/29/24 10:29 Family History Father Heart disease Myocardial infarction Mother Diabetes Heart disease Brother Heart disease Myocardial infarction Diabetes Surgical History Status post laparoscopic-assisted sigmoidectomy History of colonoscopy History of hemorrhoidectomy Social History Smoking Status: Current every day smoker tobacco type: cigarettes Review of Systems (Anesthesia) ROS Narrative System reviewed and no additional complaints, except as documented.
[2024-08-29 11:18] LABS: Anion Gap 8 (5-15); BUN 12 mg/dL (7-18); BUN/Creat Ratio 16.7 RATIO (10-20); Calcium,Total 9.1 mg/dL (8.5-10.1); Chloride 108 mmol/L (98-107); Creatinine, Serum 0.72 mg/dL (0.55-1.02); EST Glomerular Filtration Rate 88 mL/min (>60); Est Glom Filt Rate - Afr Amer 106 mL/min (>60); Estimated Creatinine Clearance 79.79 ml/min; Glucose 106 mg/dL (74-106); Potassium 3.5 mmol/L (3.5-5.1); Sodium Level 139 mmol/L (136-145)
[2024-08-29] MEDS: Cefazolin 2 GM in Syringe IV (12:45)
--- NOTE | 2024-08-29 13:34 | PCM.POST.ANE ---
Anesthesia: Postop Eval I Current Vital Signs Temperature: 97 F Pulse Rate: 68 Blood Pressure: 114/61 Respiratory Rate: 16 Pulse Ox: 99 Oxygen Delivery Method: Room Air Assessment Airway patent: Yes Spontaneous unlabored respirations: Yes Mental status: Asleep nausea: No Vomiting: No Anesthesia Complication: No Fluid Hydration Crystalloid volume administer (ml): 1,200 Total IV fluid infused: 1,200 Progress Note Anesthesia document: Postop Eval 1 completed: Yes
--- NOTE | 2024-08-29 13:50 | POSTOPAN2_ITS ---
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 Spontaneous unlabored Yes 08/29/24 13:35 RETURNED MATERIALS INSPECTOR.JSWI respirations Mental status Asleep 08/29/24 13:35 RETURNED MATERIALS INSPECTOR.JSWI nausea No 08/29/24 13:35 RETURNED MATERIALS INSPECTOR.JSWI Vomiting No 08/29/24 13:35 RETURNED MATERIALS INSPECTOR.JSWI Anesthesia Postop Eval I: Fluid Summary Crystalloid volume administer 1,200 08/29/24 13:35 RETURNED MATERIALS INSPECTOR.JSWI (ml) Colloids volume administered ( ml) Blood Product volume administered (ml) Total IV fluid infused 1,200 08/29/24 13:35 RETURNED MATERIALS INSPECTOR.JSWI Anesthesia Postop Eval I: Summary Notes Anesthesia Complication No 08/29/24 13:35 RETURNED MATERIALS INSPECTOR.JSWI Anesthesia Complication Comment: Post-operative progress note Anesthesia: Postop Eval II Evaluation Mental status: Awake Pain Level: 0 nausea: No Vomiting: No
--- NOTE | 2024-08-29 13:50 | PCM.POSTANE2 ---
Anesthesia Postop Eval I Sum Postop Eval Completion status Anesthesia document: Postop Eval 1 completed: Yes Anesthesia Postop Eval I Summary Anesthesia Postop Eval I Summary: Anesthesia Postop Eval I: Assessment Summary Airway patent Yes 08/29/24 13:35 GREENHOUSE [email or web address] Spontaneous unlabored Yes 08/29/24 13:35 GREENHOUSE [email or web address] respirations Mental status Asleep 08/29/24 13:35 GREENHOUSE [email or web address] nausea No 08/29/24 13:35 GREENHOUSE [email or web address] Vomiting No 08/29/24 13:35 GREENHOUSE [email or web address] Anesthesia Postop Eval I: Fluid Summary Crystalloid volume administer 1,200 08/29/24 13:35 GREENHOUSE [email or web address] (ml) Colloids volume administered ( ml) Blood Product volume administered (ml) Total IV fluid infused 1,200 08/29/24 13:35 GREENHOUSE [email or web address] Anesthesia Postop Eval I: Summary Notes Anesthesia Complication No 08/29/24 13:35 GREENHOUSE [email or web address] Anesthesia Complication Comment: Post-operative progress note Anesthesia: Postop Eval II Evaluation Mental status: Awake Pain Level: 0 nausea: No Vomiting: No
== END 2024-08-29 15:15 | disposition home or self-care (01) ==
LOC: SDC 10:08 → AC 10:09
PROVIDERS: PCP Family Medicine; Referring Provider Urology; Visit Provider Urology
PROC: (CPT 50590; principal; 2024-08-29 11:55)
DX: N20.0 Calculus of kidney (principal); N39.41 Urge incontinence; N32.89 Other specified disorders of bladder; F17.210 Nicotine dependence, cigarettes, uncomplicated; Z79.899 Other long term (current) drug therapy; Z87.440 Personal history of urinary (tract) infections
CPT/HCPCS: 50590; 00873; 80048; 85027; J2405

== ENCOUNTER 2024-09-12 10:15 | Day surgery (SDC) | payer BC, SELFPAY ==
[2024-09-12] VITALS (7 sets, daily range): BP systolic 103–120; BP diastolic 62–69; PULSE 62–86; RESP 14–20; TEMP 35.9–37.1; O2SAT 97–100; BMI 22.9
[2024-09-12] MEDS: 0.9% Normal Saline (1000mL) 1,000 ML 15 ML IV (10:40)
--- NOTE | 2024-09-12 10:55 | PCM.PRE.AN2 ---
ASA Classification* ASA Classification ASA Classification: 2 Assessment & Plan Anesthesia* Anesthesia Assessment Anesthesia Assessment: Discussed sedation and/or anesthesia options, risks, benefits, and alternatives with patient/parents/legal guardian/POA. Questions invited. The patient/parents/legal guardian/POA seems to understand and agrees to proceed with anesthesia plan. Reviewed the physical assessment, medical history, allergy history and patient home medications list prior to surgery/procedure/anesthetic and documented any changes. Performed airway and anesthesia risk assessments. Anesthesia Type Anesthesia Type: General History Source History Obtained from:: Patient and Chart Anesthesia Focused Assessment* Temperature: 98.8 F Pulse Rate: 86 Blood Pressure: 103/62 Respiratory Rate: 16 Pulse Ox: 97 Oxygen Delivery Method: Room Air Airway Assessment Mouth opens: >3 cm Mallampati Score: II Teeth Condition: Dentures (Patient has full upper and lower dentures.) Neck Range of motion (ROM): Full ROM Focused Labs Anesthesia Preop lab: CBC WBC 8.4 K/mm3 (4.4-11.0) 08/29/24 10:50 08/29/24 RBC 4.42 M/mm3 (4.2-5.4) 08/29/24 10:50 08/29/24 Hgb 13.4 g/dL (12.0-15.0) 08/29/24 10:50 08/29/24 Hct 39.4 % (37-47) 08/29/24 10:50 08/29/24 Plt Count 391 K/mm3 (150-450) 08/29/24 10:50 08/29/24 CHEMISTRY Potassium 3.5 mmol/L (3.5-5.1) 08/29/24 10:50 08/29/24 Sodium 139 mmol/L (136-145) 08/29/24 10:50 08/29/24 Magnesium 2.2 mg/dL (1.6-2.6) 09/06/22 07:43 09/06/22 BUN 12 mg/dL (7-18) 08/29/24 10:50 08/29/24 Creatinine 0.72 mg/dL (0.55-1.02) 08/29/24 10:50 08/29/24 Glucose 106 mg/dL (74-106) 08/29/24 10:50 08/29/24 POC Glucose 86 mg/dL (74-106) 09/13/22 05:56 09/13/22 TSH 0.562 uIU/mL (0.358-3.740) 04/18/24 16:02 04/18/24 COAG Pre-Assessment Diagnosis/Proposed Procedure Planned Operative Procedure(s): LEFT RENAL ESWL Anesthesia History Anesthesia History - telephone advice nurse: Anesthesia History - telephone advice nurse Hx Hospitalization No 09/11/24 09:10 Any Problems With Anesthesia No 09/11/24 09:10 Cholinesterase deficiency No 09/11/24 09:10 You/Your Family Experience No 09/11/24 09:10 fever (hyperthermia) with Relationship Recent Exposure to Contagious No 09/12/24 10:35 Disease Does patient have nerve No 09/11/24 09:10 stimulator Patient instructed to have device shut off --Does patient have Pacemaker No 09/12/24 10:37 or ICD? When Was Last Pacemaker Check QUESTION #4 FULL TEXT: You/Your Family Experience fever (hyperthermia) with Anesthesia Last Oral Intake Last Oral intake: Last Oral Intake NPO since 05:30 09/12/24 10:37 Meds taken in AM with sips of No 09/12/24 10:37 water? Meds patient instructed to take am of surgery Any additional information?: Yes NPO since: 05:30 (Patient had half bottle water at 5:30 AM.) PONV PONV - telephone advice nurse: PONV - telephone advice nurse Female Yes 09/11/24 09:10 HX of Motion Sickness No 09/11/24 09:10 HX of N/V After Surgery No 09/11/24 09:10 Non-Smoker No 09/11/24 09:10 Duration of Surgery greater No 09/11/24 09:10 than 60 minutes Number of Risk Factors 1 09/11/24 09:10 PONV Score Low Risk 09/11/24 09:10 Height & Weight Height & Weight: Anesthesia: Height & Weight Height 5 ft 7 in 09/12/24 10:37 Weight: 66.497 kg 09/12/24 10:37 Body Mass Index (BMI) 22.9 09/12/24 10:37 Respiratory Assessment Respiratory Assessment - telephone advice nurse: Respiratory Tract Infection Hx - telephone advice nurse Hx Respiratory Tract Infection Yes: PNEUMONIA 08/14/2024 09/11/24 09:10 Any additional information?: Yes Hx Respiratory Tract Infection: Yes (pneumonia had resolved by the same procedure on the other side 2 weeks ago) STOP Sleep Apnea STOP Sleep Apnea - telephone advice nurse: STOP Sleep Apnea - telephone advice nurse Hx Hypertension No 09/11/24 09:10 Hx Sleep Apnea Yes: NONCOMPLIANT 09/11/24 09:10 CPAP No 09/11/24 09:10 BIPAP No 09/11/24 09:10 Do you snore loudly (louder than talking or can be heard Do you often feel tired/ fatigued/ sleepy during daytime? Has anyone observed you stop breathing during sleep? STOP Results Positive 09/11/24 09:10 QUESTION #5 FULL TEXT : Do you snore loudly (louder than talking or can be heard through closed doors)? Tobacco Use History Tobacco Use History - telephone advice nurse: Tobacco Use History - telephone advice nurse Tobacco Use Smoking Status Current every day smoker 09/11/24 09:10 Hx Tobacco Use Yes 09/11/24 09:10 Years Smoking Packs Smoked per Day Smoking Cessation Date was within the last 15 years Hx Smoking Cessation Date Hx Smoking Cessation Yes 09/11/24 09:10 Counseling Any additional information?: Yes Smoking Status: Current every day smoker (Patient did not smoke today.) Hematologic Medial History Hematologic Hx - telephone advice nurse: Hematologic Medical Hx - technical staff assistant Hx of Blood Transfusion No 09/11/24 09:10 Hx of Transfusion in last 3 No 09/11/24 09:10 Months Date of Last Transfusion (if within last 3 months) Ever experience any problems No 09/11/24 09:10 with transfusion(s)? Specify any problems Hx of Preganancy in last 3 N/A 09/11/24 09:10 Months Nurse Filling Out Transfusion NBUCHER 09/11/24 09:10 & Questions: Date: 09/11/24 09/11/24 09:10 Time: 09:10 09/11/24 09:10 Patient unable to answer at this time (ie. confused, unrespo /Reproduction History /Reproductive History - telephone advice nurse: /Reproductive Hx- telephone advice nurse Hx Now Gestational Age (in weeks): EDC: Hx Hx Para Hx Section SAB No 09/11/24 09:10 Active Medications Active Medications: Current Medications Generic Name Dose Route Start Last Admin Trade Name Morganq PRN Reason Stop Dose Admin Cefazolin Sodium 2 gm/ N/A 20 mls @ 400 mls/hr 09/12/24 11:55 IV 09/12/24 11:57 PREOP ONE Sodium Chloride 1,000 mls @ 15 mls/hr 09/12/24 10:30 09/12/24 10:40 IV 09/17/24 23:49 15 mls/hr .Q48H KIRSTIN Administration Protocol [facility] Medical History Kidney stone Anxiety Depression Shoulder pain Wears dentures Post-menopausal Arthritis History of diverticulitis Smoker Anxiety and depression Home Medications ?Medication ?Instructions ?Recorded ?Last Taken ?Type cholecalciferol (vitamin D3) 25 25 mcg PO DAILY SUPPLEMENT 03/13/21 09/11/24 History mcg (1,000 unit) capsule escitalopram oxalate 5 mg tablet 5 mg PO QHS ANXIETY 03/13/21 09/11/24 History calcium carbonate 600 mg PO DAILY SUPPLEMENT 06/21/22 09/10/24 History multivitamin 1 tab PO DAILY SUPPLEMENT 06/21/22 09/11/24 History ferrous sulfate 325 mg (65 mg 325 mg PO DAILY 09/12/24 09/11/24 History iron) tablet (FeroSul) Allergy/AdvReac Type Severity Reaction Status Date / Time No Known Allergies Allergy Verified 09/12/24 10:34 Family History Father Heart disease Myocardial infarction Mother Diabetes Heart disease Brother Heart disease Myocardial infarction Diabetes Surgical History Status post laparoscopic-assisted sigmoidectomy History of colonoscopy History of hemorrhoidectomy Social History Smoking Status: Current every day smoker tobacco type: cigarettes Review of Systems (Anesthesia) ROS Narrative System reviewed and no additional complaints, except as documented.
--- NOTE | 2024-09-12 12:38 | EX.PCM.DISCH ---
Discharge Instructions Diet Discharge Diet: No restrictions Activity Discharge Activity: Return to Normal Activity Dressing / Incision Call your doctor if you observe: Fever of 101 or Higher, Inability to urinate and Inability to have a bowel movement Follow Up Care Please Follow Up With: Venice Ruano MD When: In 2 to 3 weeks in the office with a KUB Test Results: Test results from this visit will be discussed in further detail at your follow-up appointment, if applicable. Discharge Plan Admission Attending Provider: Venice Ruano Primary Care Provider: Karl Arroyo Instructions Print Language: Citizen Of [place] Discharge Orders/Prescriptions Prescriptions: New cephalexin 500 mg capsule 500 mg PO Q12 3 Days Qty: 6 0RF Continued cholecalciferol (vitamin D3) 25 mcg (1,000 unit) capsule 25 mcg PO DAILY escitalopram oxalate 5 mg tablet 5 mg PO QHS calcium carbonate 600 mg calcium (1,500 mg) tablet 600 mg PO DAILY multivitamin Tablet 1 tab PO DAILY ferrous sulfate [FeroSul] 325 mg (65 mg iron) tablet 325 mg PO DAILY Referrals / Follow Up: Karl Arroyo MD [Primary Care Provider] - Disposition Disposition (needs filled in before D/C Order can be placed): Home, Self Care
--- NOTE | 2024-09-12 12:39 | PCM.OPRPT ---
Operative Report (Standard) Operative Information Date of Procedure: 09/12/24 Pre-Operative Diagnosis: Left renal stones Post-Operative Diagnosis: Same Surgery/Procedure Performed: Left renal extracorporeal shockwave lithotripsy vice president of software development: No Type of Anesthesia: General RN Documented Start/Stop Times: Operation Date: 09/12/24 11:55 Case Time Into Pre-Op 09/12/24 10:27 Out of Pre-Op 09/12/24 12:32 Anesthesia Start 09/12/24 12:35 Into Room 09/12/24 12:35 Procedure Start 09/12/24 12:47 Procedure End 09/12/24 13:21 Anesthesia End 09/12/24 13:26 Out of Room 09/12/24 13:26 Procedure Start Time: 12:47 Procedure Stop Time: 13:21 Select all DRAINS/GRAFTS/IMPLANTS that apply: None Estimated Blood Loss: <5cc Specimen collected: No Description of surgery: The patient is a 59-year-old female with left renal stones who presents for extracorporeal shockwave lithotripsy. Informed consent was obtained. She was taken to the operating room and placed on the lithotripsy table. Anesthesia monitored the head, neck, airway, IV access and vital signs throughout the case. Once anesthesia was appropriate ministered the lithotripter was aligned with her stones and 3000 shocks were applied. The calcifications appeared to be well fragmented at the conclusion of the case. She was awakened and taken to the recovery room in good condition. There were no complications during the procedure. Surgical Findings: Visualization of the right kidney revealed no significant evidence of remaining calcifications. Complications Complications: No Admit VTE Documentation VTE Present on Admission: Yes VTE Mechan Device Prophylaxis: SCD's VTE Pharm Prophylaxis ordered?: No Reason prophylaxis not ordered: Treatment Not Indicated
[2024-09-12] MEDS: Cefazolin 2 GM in Syringe IV (12:40)
--- NOTE | 2024-09-12 13:29 | PCM.POST.ANE ---
Anesthesia: Postop Eval I Current Vital Signs Temperature: 96.7 F Pulse Rate: 65 Blood Pressure: 116/69 Respiratory Rate: 20 Pulse Ox: 100 Oxygen Delivery Method: Room Air Assessment Airway patent: Yes Spontaneous unlabored respirations: Yes Mental status: Asleep nausea: No Vomiting: No Anesthesia Complication: No Fluid Hydration Crystalloid volume administer (ml): 800 Total IV fluid infused: 800 Progress Note Anesthesia document: Postop Eval 1 completed: Yes
--- NOTE | 2024-09-12 23:28 | POSTOPAN2_ITS ---
Anesthesia Postop Eval I Sum Postop Eval Completion status Anesthesia document: Postop Eval 1 completed: Yes Anesthesia Postop Eval I Summary Anesthesia Postop Eval I Summary: Anesthesia Postop Eval I: Assessment Summary Airway patent Yes 09/12/24 13:30 PHYSICAL DESIGN [email or web address] Spontaneous unlabored Yes 09/12/24 13:30 PHYSICAL DESIGN ENGINEER.[email or web address] respirations Mental status Asleep 09/12/24 13:30 PHYSICAL DESIGN ENGINEER.[email or web address] nausea No 09/12/24 13:30 PHYSICAL DESIGN ENGINEER.[email or web address] Vomiting No 09/12/24 13:30 PHYSICAL DESIGN ENGINEER.[email or web address] Anesthesia Postop Eval I: Fluid Summary Crystalloid volume administer 800 09/12/24 13:30 PHYSICAL DESIGN ENGINEER.[email or web address] (ml) Colloids volume administered ( ml) Blood Product volume administered (ml) Total IV fluid infused 800 09/12/24 13:30 PHYSICAL DESIGN ENGINEER.[email or web address] Anesthesia Postop Eval I: Summary Notes Anesthesia Complication No 09/12/24 13:30 PHYSICAL DESIGN ENGINEER.[email or web address] Anesthesia Complication Comment: Post-operative progress note Anesthesia: Postop Eval II Evaluation Mental status: Awake and Calm Pain Level: 2 nausea: No Vomiting: No Complications Anesthesia Complication: No
--- NOTE | 2024-09-12 23:28 | PCM.POSTANE2 ---
Anesthesia Postop Eval I Sum Postop Eval Completion status Anesthesia document: Postop Eval 1 completed: Yes Anesthesia Postop Eval I Summary Anesthesia Postop Eval I Summary: Anesthesia Postop Eval I: Assessment Summary Airway patent Yes 09/12/24 13:30 TUBE [email or web address] Spontaneous unlabored Yes 09/12/24 13:30 TUBE TURNER.[email or web address] respirations Mental status Asleep 09/12/24 13:30 TUBE [email or web address] nausea No 09/12/24 13:30 TUBE TURNER.[email or web address] Vomiting No 09/12/24 13:30 TUBE TURNER.[email or web address] Anesthesia Postop Eval I: Fluid Summary Crystalloid volume administer 800 09/12/24 13:30 TUBE [email or web address].[email or web address] (ml) Colloids volume administered ( ml) Blood Product volume administered (ml) Total IV fluid infused 800 09/12/24 13:30 TUBE TURNER.[email or web address] Anesthesia Postop Eval I: Summary Notes Anesthesia Complication No 09/12/24 13:30 TUBE TURNER.[email or web address] Anesthesia Complication Comment: Post-operative progress note Anesthesia: Postop Eval II Evaluation Mental status: Awake and Calm Pain Level: 2 nausea: No Vomiting: No Complications Anesthesia Complication: No
== END 2024-09-12 14:17 | disposition home or self-care (01) ==
LOC: SDC 10:15 → AC 10:19
PROVIDERS: PCP Family Medicine; Referring Provider Urology; Visit Provider Urology
PROC: (CPT 50590; principal; 2024-09-12 11:45)
DX: N20.0 Calculus of kidney (principal); F41.9 Anxiety disorder, unspecified; F17.210 Nicotine dependence, cigarettes, uncomplicated; Z79.899 Other long term (current) drug therapy
CPT/HCPCS: 50590; 00873; J2405

== ENCOUNTER → 2024-10-01 | Outpatient (CLI) | payer BC, SELFPAY ==
--- NOTE | 2024-10-01 14:43 | RAD_ITS ---
PROCEDURE: ABDOMEN SINGLE VIEW REASON FOR EXAM: Kidney stone. TECHNIQUE: Single view abdomen. COMPARISON: 08/23/2024 CT abdomen and pelvis. FINDINGS: Bowel gas pattern is normal. No evidence of bowel obstruction. No suspicious calcifications. The bones are unremarkable. Metallic clips in the pelvis most likely related to sterilization procedure. RAD/Abdomen Single View IMPRESSION: Unremarkable supine abdomen. Reading Location: [facility]
== END | disposition home or self-care (01) ==
LOC: MTRAD 14:41
PROVIDERS: PCP Family Medicine; Referring Provider Urology; Visit Provider Urology
DX: N20.0 Calculus of kidney (principal)
CPT/HCPCS: 74018

== ENCOUNTER → 2025-05-02 | Outpatient (CLI) | payer BC, SELFPAY | END | disposition home or self-care (01) | LOC: LABSPEC 12:02 | PROVIDERS: PCP Family Medicine | DX: N39.0 Urinary tract infection, site not specified (principal) | CPT/HCPCS: 87077; 87086; 87088; 87186 ==